=== PATIENT | female | born 1965 | race Caucasian/White ===

== ENCOUNTER 2017-09-10 10:20 | Emergency (ER) | payer MEDICAID ==
[~2017-09-10] VITALS: Ht 162.6 cm; Wt 120.0 kg
[~2017-09-10 10:20] MED LIST: ACET-2119 PO; ALBU18HF2 INH; ARIP5TAB4 PO; DIPH-423 PO; DOCU-28 PO; LAMO100T89 PO; LEVO25TA2 PO; OLAN15TA3 PO; OXYB5TAB29 PO; RISP0.5T74 PO; TOPI100T18 PO; TOPI50TA PO
[2017-09-10] MEDS ORDERED: LORazepam 2 mg/ml vial IM ONE (10:35)
[2017-09-10 10:50] LABS: BASOPHILS % (AUTO) 0.4 % (0-1); EOSINOPHILS # (AUTO) 0.1 X10'3 (0-0.9); EOSINOPHILS % (AUTO) 1.9 % (0-6); HEMOGLOBIN 14.1 g/dl (12.0-16.0); LYMPHOCYTES % (AUTO) 19.1 % (21-51); MEAN CORPUSCULAR HEMOGLOBIN 31.6 PG (27.0-31.0); MEAN CORPUSCULAR HGB CONC 34.3 % (33.0-36.5); MEAN CORPUSCULAR VOLUME 92.3 FL (78-98); MEAN PLATELET VOLUME 6.6 FL (7.4-10.4); MONOCYTES # (AUTO) 0.4 X10'3 (0-0.9); MONOCYTES % (AUTO) 7.2 % (2-12); NEUTROPHILS # (AUTO) 3.7 X10'3 (1.8-7.7); NEUTROPHILS % (AUTO) 71.4 % (42-75); PLATELET COUNT 262 X10'3 (140-440); RED BLOOD COUNT 4.45 X10'6 (4.20-5.60); RED CELL DISTRIBUTION WIDTH 13.7 % (11.5-14.5); WHITE BLOOD COUNT 5.2 X10'3 (4.5-11.0)
[2017-09-10 11:12] LABS: ALANINE AMINOTRANSFERASE 28 U/L (12-78); ALBUMIN 3.5 G/DL (3.4-5.0); ALBUMIN/GLOBULIN RATIO 0.9 (1.1-1.5); ALKALINE PHOSPHATASE 82 IU/L (46-116); ANION GAP 11 (8-16); ASPARTATE AMINO TRANSFERASE 16 U/L (10-37); BILIRUBIN,TOTAL 0.3 MG/DL (0.1-1.0); BLOOD UREA NITROGEN 19 MG/DL (7-18); BUN/CREATININE RATIO 19.8 (6.6-38.0); CALCIUM 9.2 MG/DL (8.5-10.1); CHLORIDE 110 MMOL/L (99-107); CREATININE 0.96 MG/DL (0.40-0.90); ETHANOL < 0.010 GM/DL (0.0-0.010); GLUCOSE 109 MG/DL (70-104); SODIUM 147 MMOL/L (135-145); TOTAL CARBON DIOXIDE 26.2 MMOL/L (24-32); TOTAL PROTEIN 7.4 G/DL (6.4-8.2); eGFR 61 ML/MIN
[2017-09-10] MEDS ORDERED: LORazepam 1 MG tablet PO ONE (12:45)
[2017-09-10 13:50] LABS: CLARITY,URINE Cloudy (Clear); COLOR,URINE Yellow (Yellow); GLUCOSE, URINE Negative (Neg); KETONES,URINE Negative (Neg); LEUKOCYTE ESTERASE ,URINE Moderate (Neg); NITRITES, URINE Negative (Neg); OCCULT BLOOD,URINE Moderate (Neg); PROTEIN,URINE Negative (Neg)
[2017-09-10 13:51] LABS: UA COLLECTION TYPE CLN CATCH MIDSTREAM
[2017-09-10 13:59] LABS: URINE AMPHETAMINE SCREEN NEGATIVE (Neg); URINE BARBITUATE SCREEN NEGATIVE (Neg); URINE BENZODIAZEPINES SCREEN NEGATIVE (Neg); URINE CANNABINOID SCREEN NEGATIVE (Neg); URINE COCAINE SCREEN NEGATIVE (Neg); URINE METHADONE SCREEN NEGATIVE (Neg); URINE OPIATE SCREEN NEGATIVE (Neg); URINE PHENCYCLIDINE SCREEN NEGATIVE (Neg)
[2017-09-10 14:43] LABS: AMORPHOUS PHOSPHATES 1+; BACTERIA,URINE 4+ /HPF (Neg); MUCUS STRANDS FEW /LPF (Neg); RBC,URINE 0-2 /HPF (0-2); SQUAMOUS EPITHELIAL CELL,UR MODERATE /LPF (FEW)
[2017-09-10 14:44] LABS: WBC CLUMPS,URINE FEW /HPF (NEGATIVE)
[2017-09-11 03:25] LABS: URINE HCG NEGATIVE (NEG)
[2017-09-11] MEDS ORDERED: diphenhydrAMINE 25mg capsule PO PRN (09:40)
[2017-09-11] MEDS ORDERED: acetaminophen 325mg tablet PO PRN (09:40)
[2017-09-11] MEDS ORDERED: albuterol 2.5 MG/3 ML nebule NEB PRN (09:50)
[2017-09-11] MEDS ORDERED: levoTHYROXINE 25mcg tablet PO ONE (10:10)
[2017-09-11] MEDS ORDERED: aripiprazole 5mg tablet PO ONE (10:10)
[2017-09-11] MEDS: LORazepam 1 MG tablet PO PRN ×2 (10:42→20:37)
[2017-09-11] MEDS: risperiDONE 0.5mg tablet PO SCH ×2 (12:53→21:00)
[2017-09-11] MEDS: OLANZapine 2.5MG tablet PO SCH ×2 (12:53→20:36)
[2017-09-11] MEDS: topiramate 100mg tablet PO SCH ×2 (12:53→20:37)
[2017-09-11] MEDS: olanzapine 10mg tablet PO SCH ×2 (12:54→20:36)
[2017-09-11] MEDS: oxybutynin 5mg tablet PO SCH ×2 (13:15→20:38)
[2017-09-11] MEDS: docusate sod 100mg capsule PO SCH (20:00)
[2017-09-11] MEDS ORDERED: lamoTRIgine 100mg tablet PO SCH (21:00)
[2017-09-12] MEDS ORDERED: levoTHYROXINE 25mcg tablet PO SCH (07:00)
[2017-09-12 07:30] VITALS: BP 136/85
[2017-09-12] MEDS: oxybutynin 5mg tablet PO SCH (07:30)
[2017-09-12] MEDS: topiramate 100mg tablet PO SCH (07:30)
[2017-09-12] MEDS: olanzapine 10mg tablet PO SCH (07:30)
[2017-09-12] MEDS: docusate sod 100mg capsule PO SCH ×2 (07:30→07:31)
[2017-09-12] MEDS: risperiDONE 0.5mg tablet PO SCH (07:30)
[2017-09-12] MEDS: OLANZapine 2.5MG tablet PO SCH (07:30)
[2017-09-12] MEDS ORDERED: aripiprazole 5mg tablet PO SCH (08:00)
== END 2017-09-12 10:01 ==
LOC: ER 10:20
DX: F31.9 Bipolar disorder, unspecified (principal); F20.9 Schizophrenia, unspecified; F29 Unspecified psychosis not due to a substance or known physiological condition; Z88.0 Allergy status to penicillin; Z88.2 Allergy status to sulfonamides; Z88.5 Allergy status to narcotic agent; Z88.6 Allergy status to analgesic agent; Z88.8 Allergy status to other drugs, medicaments and biological substances; Z79.899 Other long term (current) drug therapy
CPT/HCPCS: 36415; 80053; 80305; 80320; 81001; 81025; 85025; 99285; J3490; Q0163; 84443

== ENCOUNTER 2021-07-17 18:25 | Inpatient (IN) | payer MEDICAID ==
[~2021-07-17] VITALS: Ht 160 cm; Wt 99.5 kg
[~2021-07-17 18:25] MED LIST changes: +ARIP5TAB14 PO; -ARIP5TAB4 PO; +LAMO100T PO; -LAMO100T89 PO; +TOP100T PO; -TOPI100T18 PO; -TOPI50TA PO
[2021-07-17] MEDS ORDERED: NICO-668 MM (20:01)
[2021-07-17] MEDS ORDERED: olanzapine 10mg tablet PO ONE (20:05)
[2021-07-17] MEDS ORDERED: diphenhydrAMINE 25mg capsule PO ONE (20:05)
[2021-07-17] MEDS ORDERED: LORazepam 2 mg/ml vial IM ONE (20:05)
[2021-07-17] MEDS ORDERED: diphenhydrAMINE 50 mg/ml inj IM ONE (20:05)
[2021-07-17] MEDS ORDERED: LORazepam 1 MG tablet PO ONE (20:05)
[2021-07-17] MEDS ORDERED: OLANZapine **IM** 10 mg inj. IM ONE (20:05)
[2021-07-17 20:35] LABS: BASOPHILS % (AUTO) 0.5 % (0-1); EOSINOPHILS # (AUTO) 0.1 X10'3 (0-0.9); EOSINOPHILS % (AUTO) 1.1 % (0-6); HEMATOCRIT 42.6 % (35.0-45.0); HEMOGLOBIN 14.3 g/dl (12.0-16.0); LYMPHOCYTES # (AUTO) 1.7 X10'3 (1.1-4.8); LYMPHOCYTES % (AUTO) 20.6 % (21-51); MEAN CORPUSCULAR HEMOGLOBIN 31.7 PG (27.0-31.0); MEAN CORPUSCULAR HGB CONC 33.6 g/dL (33.0-36.5); MEAN CORPUSCULAR VOLUME 94.1 FL (78-98); MEAN PLATELET VOLUME 6.8 FL (7.4-10.4); MONOCYTES # (AUTO) 0.6 X10'3 (0-0.9); MONOCYTES % (AUTO) 6.9 % (2-12); NEUTROPHILS # (AUTO) 5.7 X10'3 (1.8-7.7); NEUTROPHILS % (AUTO) 70.9 % (42-75); PLATELET COUNT 244 X10'3 (140-440); RED BLOOD COUNT 4.52 X10'6 (4.20-5.60); WHITE BLOOD COUNT 8.1 X10'3 (4.5-11.0)
--- NOTE | 2021-07-17 20:45 | NUR ---
New admit, patient recived at 18:15 . Patient showed signs of hypo manic psychosis spending a long period of time in the bathroom playing with the toliet, patient had to be encouraged out. Patient was seen by PA and was given Ativan 2mg, Benadryl 50mg and Zyprexa 10mg for sedation. Patient is not oriented, patient belives she is a 11 yr old girl who had an and the year is 1998. Patient does not undertand that she is in a hospital or even which city she is in. Patient was given unit scrubs and assisted to bed.
[2021-07-17 20:52] LABS: ALANINE AMINOTRANSFERASE 30 U/L (12-78); ALBUMIN 4.1 G/DL (3.4-5.0); ALBUMIN/GLOBULIN RATIO 1.1 (1.1-1.5); ALKALINE PHOSPHATASE 92 IU/L (46-116); ANION GAP 9 (8-16); ASPARTATE AMINO TRANSFERASE 21 U/L (10-37); BILIRUBIN,TOTAL 0.6 MG/DL (0.1-1.0); BLOOD UREA NITROGEN 19 MG/DL (7-18); BUN/CREATININE RATIO 21.6 (6.6-38.0); CHLORIDE 104 MMOL/L (99-107); CREATININE 0.88 MG/DL (0.40-0.90); ETHANOL < 0.010 GM/DL (0.0-0.010); GLUCOSE 110 MG/DL (70-104); POTASSIUM 3.3 MMOL/L (3.5-5.1); SODIUM 143 MMOL/L (135-145); TOTAL CARBON DIOXIDE 30.2 MMOL/L (24-32); TOTAL PROTEIN 7.9 G/DL (6.4-8.2); eGFR 66 ML/MIN
[2021-07-17] MEDS ORDERED: potassium Cl 20 mEq SR tablet PO ONE (21:05)
[2021-07-17] MEDS ORDERED: traZODone 50mg tablet PO PRN (22:00)
[2021-07-17 22:28] LABS: URINE AMPHETAMINE SCREEN NEGATIVE (Neg); URINE BARBITUATE SCREEN NEGATIVE (Neg); URINE BENZODIAZEPINES SCREEN NEGATIVE (Neg); URINE CANNABINOID SCREEN NEGATIVE (Neg); URINE COCAINE SCREEN NEGATIVE (Neg); URINE METHADONE SCREEN NEGATIVE (Neg); URINE OPIATE SCREEN NEGATIVE (Neg); URINE PHENCYCLIDINE SCREEN NEGATIVE (Neg)
--- NOTE | 2021-07-17 22:35 | NUR ---
Patient continues with delusional statements of being a child and waiting for asif. Patient was assisted to restroom for clean catch and again had to be encouraged out of bathroom. Patient is still awake an hour after medications were given. Nurse got verbal order from PA to add trazodone 100mg prn repeat after 45min and Atrax 50mg prn. Patient was given trazodone and assisted back to bed. Patient was observed laughing to self and appeared occupied by internal stimuli. When nurse asked who she was talking to patient just laughed and said it was a secret. Patient later started repeatedly asking for a benie and stating her head had woodson bite. Patient was given multiple heated blankets and encouraged to lay back down.
[2021-07-17 23:31] LABS: CLARITY,URINE CLEAR (Clear); COLOR,URINE YELLOW (Yellow); GLUCOSE, URINE NEGATIVE (Neg); KETONES,URINE 40 mg/dl (Neg); LEUKOCYTE ESTERASE ,URINE NEGATIVE (Neg); NITRITES, URINE NEGATIVE (Neg); OCCULT BLOOD,URINE NEGATIVE (Neg); PH,URINE 6.5 (4.8-8.0); PROTEIN,URINE NEGATIVE (Neg); UROBILINOGEN,URINE 0.2 E.U/dL (0.2-1.0)
[2021-07-17 23:34] LABS: UA COLLECTION TYPE CLN CATCH MIDSTREAM
[2021-07-18] MEDS ORDERED: LORazepam 1 MG tablet PO ONE ×2 (00:25)
[2021-07-18] MEDS ORDERED: diphenhydrAMINE 25mg capsule PO ONE (00:25)
--- NOTE | 2021-07-18 00:36 | NUR ---
Patient got up again to go to the restroom and again had to be encouraged out. Patient was given repeat trazodone due to patient still awake and actively responding to internal stimuli. Patient repeatedly asking for the morning after pill stating she slept with asif and didnt want to have a baby.
--- NOTE | 2021-07-18 02:29 | NUR ---
Patient keep yelling the baby is coming out and had to be redirected. Patient is still not sleeping, Dr. moore ordered ativan 2mg and benadryl 50mg. Patient took all medications. Patient continues to responed to internal voices and is getting louder.
--- NOTE | 2021-07-18 02:46 | NUR ---
Patient is finally asleep!
--- NOTE | 2021-07-18 04:36 | NUR ---
Patient is sleeping, breaths even and unlabored
--- NOTE | 2021-07-18 06:30 | NUR ---
Received patient awake in her room sorting through the items in her hygiene container.
--- NOTE | 2021-07-18 06:40 | NUR ---
Patient awake and pacing unit, Patient continues to try and get into restroom and mess around in sink. Patient redirected to bedside.
[2021-07-18] MEDS: albuterol 2.5 MG/3 ML nebule NEB SCH ×3 (07:00→15:00)
[2021-07-18] MEDS: levoTHYROXINE 25mcg tablet PO SCH (07:09)
[2021-07-18] MEDS: risperiDONE 0.5mg tablet PO SCH ×3 (07:09→20:22)
[2021-07-18] MEDS: OLANZAPINE 5 MG TABLET PO SCH ×3 (07:09→20:22)
[2021-07-18] MEDS: aripiprazole 5mg tablet PO SCH (07:09)
[2021-07-18] MEDS: docusate sod 100mg capsule PO SCH ×2 (07:09→20:21)
[2021-07-18] MEDS: oxybutynin 5mg tablet PO SCH (07:09)
[2021-07-18] MEDS: topiramate 100mg tablet PO SCH ×3 (07:09→20:22)
--- NOTE | 2021-07-18 07:30 | NUR ---
Pt requests different items, first want something to write with, a note pad , then coloring book. Pt continues to present delusional. Pt believes she is here for an "." Pt is talking to someone who isn't there. Pt believes she is , asking commercial real estate underwriter during abdominal assessment "are they still there?" Pt is singing random songs. Pt denies all psychotic symptoms. Pt is conserved.
--- NOTE | 2021-07-18 07:33 | NUR ---
PACKET FAXED TO [facility]
--- NOTE | 2021-07-18 10:00 | NUR ---
Reported to health technical writer - pt was sitting in bed and said "I just had diarrhea!" Pt was given hygiene bucket and clean scrubs to clean herself up. Pt told health technical writer her last BM was three days ago. Will hold next dose of Colace. Pt is psychotic, but is calm and redirectable.
--- NOTE | 2021-07-18 10:47 | NUR ---
Pt sitting in her room writing and coloring, pt randomly says "who is going to win the one million dollars?" "It has to be legal, not everyone is going to get the $100,000,000." "It is to share." Pt is again having this conversation with no one in the room.
--- NOTE | 2021-07-18 11:56 | NUR ---
Pt up to nurse station asking when she gets to leave. Machine Puller explained to pt she was conserved and county was looking for placement.
[2021-07-18] MEDS: NICOTINE POLACRILEX 2 MG LOZENGE BC PRN ×2 (12:14→20:23)
--- NOTE | 2021-07-18 12:19 | NUR ---
Pt receives monthly RUIZ Aristada 882mg. Last given on 07/17/21
--- NOTE | 2021-07-18 12:47 | NUR ---
Pt was compliant with 1300 medication. Pt sitting on bed saying "mom and dad come on in." "I told you they weren't there." Pt continues to respond to internal stimuli. Will continue to monitor.
--- NOTE | 2021-07-18 13:05 | NUR ---
Pt refused her lunch stating "I am vegetarian!" "I'm not eating this!" "I am going to this to my family and my insurance!" Pt eventually ate her bread and became more appropriate.
--- NOTE | 2021-07-18 13:40 | NUR ---
Pt requires redirection as she went into the bathroom and continously flushed the toilet. When asked if she was okay, pt stated "I was just making a phone call."
[2021-07-18] MEDS: hydrOXYzine 25 MG tablet PO PRN (14:41)
--- NOTE | 2021-07-18 14:46 | NUR ---
Die Cutter came back from lunch and pt was restless stating "I want to call the development rep's office." "I am supposed to be out of here." "I am going to write to [facility]." Pt continues to talk about the million dollars internal communications writer is to receive and what she will spend it on. Pt is up looking towards the exit, when asked what she was doing pt stated "I am not going anywhere." PRN Atarax was administered.
[2021-07-18] MEDS ORDERED: PRAZ2CAP2 PO (16:22)
[2021-07-18] MEDS ORDERED: GABA-534 PO (16:22)
--- NOTE | 2021-07-18 19:17 | NUR ---
RECIEVED PT SITTING IN BED
[2021-07-18] MEDS ORDERED: traZODone 50mg tablet PO ONE (20:00)
[2021-07-18] MEDS: gabapentin 400mg capsule PO SCH (20:21)
[2021-07-18] MEDS: lamoTRIgine 100mg tablet PO SCH (20:22)
[2021-07-18] MEDS: prazosin 1mg capsule PO SCH (20:22)
--- NOTE | 2021-07-18 20:45 | NUR ---
PT REFUSED HER PROZOSIN TOOK ALL OTHER MEDS.
[2021-07-18] MEDS: acetaminophen 325mg tablet PO PRN (21:42)
--- NOTE | 2021-07-18 21:58 | NUR ---
Patient is sleeping, breaths even and unlabored
--- NOTE | 2021-07-18 23:22 | NUR ---
Patient is sleeping, breaths even and unlabored
--- NOTE | 2021-07-19 04:02 | NUR ---
PATIENT OBSERVED SLEEPING IN BED AT THIS TIME. NO COMPLAINTS OR S/S OF DISTRESS.
--- NOTE | 2021-07-19 05:13 | NUR ---
PATIENT OBSERVED SLEEPING IN BED AT THIS TIME. NO COMPLAINTS OR S/S OF DISTRESS.
--- NOTE | 2021-07-19 06:25 | NUR ---
Patient up to BR and talking loudly to herself. Continue to monitor.
[2021-07-19] MEDS: levoTHYROXINE 25mcg tablet PO SCH (07:42)
[2021-07-19] MEDS: docusate sod 100mg capsule PO SCH ×2 (07:42→20:14)
[2021-07-19] MEDS: oxybutynin 5mg tablet PO SCH (07:42)
[2021-07-19] MEDS: OLANZAPINE 5 MG TABLET PO SCH ×3 (07:42→20:15)
[2021-07-19] MEDS: aripiprazole 5mg tablet PO SCH (07:42)
[2021-07-19] MEDS: topiramate 100mg tablet PO SCH ×3 (07:42→20:15)
[2021-07-19] MEDS: risperiDONE 0.5mg tablet PO SCH ×3 (07:42→20:14)
[2021-07-19] MEDS: gabapentin 400mg capsule PO SCH ×2 (07:42→20:14)
--- NOTE | 2021-07-19 08:15 | NUR ---
Patient eating breakfast. Patient continues to talk. Continue to monitor.
--- NOTE | 2021-07-19 10:05 | NUR ---
Patient yelling out to patient 2 beds over. Patient is instigating patient. Patient asked to be quiet and patient will comply for a short period of time. Continue to monitor.
[2021-07-19] MEDS: acetaminophen 325mg tablet PO PRN ×2 (11:07→20:14)
--- NOTE | 2021-07-19 11:58 | NUR ---
Patient continues to engage peer and RN asked patient again to please allow her peer to rest. Patient has not kept quiet for about 15 minutes. Continue to monitor.
--- NOTE | 2021-07-19 13:03 | NUR ---
Patient upset that she received chicken for lunch. Patient states that she is a vegetarian. RN ordered patient a Vegetarian lunch and ordered a late tray. Patient advised. Continue to monitor.
--- NOTE | 2021-07-19 13:27 | NUR ---
RN received Conservator paperwork from [facility]. RN placed in patient's chart.
--- NOTE | 2021-07-19 14:15 | NUR ---
Patient whispering and asking for the "morning after pill" and antibiotics for her STDs. Patient has no indication for either. Patient went back to her bed. Continue to monitor.
--- NOTE | 2021-07-19 14:34 | NUR ---
Patient sitting on side of bed and appears to be responding to internal stimuli.
--- NOTE | 2021-07-19 16:10 | NUR ---
Patient given warm blankets. Patient sleeping on left side. No distress observed. Continue to monitor.
--- NOTE | 2021-07-19 18:35 | NUR ---
The patient is up and about the unit periodically. She is currently sitting on her bed trying to engage with staff at the nursing station. Mood is elevated and when asked how her mood was she stated "It's great. I'm having fun" She is hyperverbal. She is accepting redirection. Mild intrussiveness. When asked if she was hearing voices or seeing things that weren't there she replied, "I don't know" When asked why she was here she replied, "I started to come because I needed a change of medications and to have an "
[2021-07-19] MEDS: diphenhydrAMINE 25mg capsule PO PRN (20:14)
[2021-07-19] MEDS: prazosin 1mg capsule PO SCH (20:15)
[2021-07-19] MEDS: lamoTRIgine 100mg tablet PO SCH (20:15)
[2021-07-19] MEDS: hydrOXYzine 25 MG tablet PO PRN (20:15)
--- NOTE | 2021-07-19 20:21 | NUR ---
The patient is having conversations with people who are not there. She stated that she works for the [employer]. She is pleasant with staff.
--- NOTE | 2021-07-19 21:40 | NUR ---
The patient is responding to internal stimuli. She has disrobed and stated that she can't sleep in her clothes.
[2021-07-19] MEDS ORDERED: LORazepam 1 MG tablet PO ONE (21:45)
--- NOTE | 2021-07-19 21:55 | NUR ---
The patient has disrobed. She is irritable and responding to internal stimuli. Dr. Levy made aware and orders received for ativan which the patient took. She was given a snack and encouraged to go back to sleep. She is refusing to sleep with the hospital scrubs but did agree to put on a hospital gown for the night.
--- NOTE | 2021-07-19 23:27 | NUR ---
The patient appears to be sleeping
--- NOTE | 2021-07-20 01:27 | NUR ---
The patient appears to be sleeping
--- NOTE | 2021-07-20 03:05 | NUR ---
The patient appears to be sleeping
--- NOTE | 2021-07-20 05:44 | NUR ---
The patient appears to be sleeping
--- NOTE | 2021-07-20 06:30 | NUR ---
Pt is in bed sleeping.
--- NOTE | 2021-07-20 08:08 | NUR ---
Pt is awake and is up using the bathroom.
[2021-07-20] MEDS: topiramate 100mg tablet PO SCH ×3 (08:26→20:23)
[2021-07-20] MEDS: gabapentin 400mg capsule PO SCH ×2 (08:26→20:23)
[2021-07-20] MEDS: risperiDONE 0.5mg tablet PO SCH ×3 (08:26→20:22)
[2021-07-20] MEDS: levoTHYROXINE 25mcg tablet PO SCH (08:26)
[2021-07-20] MEDS: OLANZAPINE 5 MG TABLET PO SCH ×3 (08:27→20:23)
[2021-07-20] MEDS: aripiprazole 5mg tablet PO SCH (08:27)
[2021-07-20] MEDS: docusate sod 100mg capsule PO SCH ×2 (08:27→20:23)
[2021-07-20] MEDS: oxybutynin 5mg tablet PO SCH (08:30)
--- NOTE | 2021-07-20 08:30 | NUR ---
Pt is lablile. She states she feels sick and has the flu. Pt is tearful. Pt's lungs are clear, she is afebrile and her vital signs are stable. Pt believed it was August 09. Pt admits to feeling a little depressed but denies SI. Pt denies AH.
--- NOTE | 2021-07-20 09:23 | NUR ---
Pt is up asking for underwear and pads.
--- NOTE | 2021-07-20 11:24 | NUR ---
Pt is sitting on the side of her bed snacking.
--- NOTE | 2021-07-20 13:30 | NUR ---
Pt got up and walked to the bathroom.
--- NOTE | 2021-07-20 14:00 | NUR ---
Held 1300 Zyprexa, Topamax, and Risperdal as pt is fast asleep and snoring.
--- NOTE | 2021-07-20 14:06 | NUR ---
Pt has been accepted by [facility]. Daryn corley RN is here to get the patient.
--- NOTE | 2021-07-20 14:09 | NUR ---
Pt transferred upstairs to [facility] via w/c accompanied by Daryn TRAN and . All belongings sent with the patient.
[2021-07-20] MEDS ORDERED: mag hydrox/Alum hydrox/simeth 30ml oral suspension PO PRN (14:35)
[2021-07-20] MEDS ORDERED: acetaminophen 325mg tablet PO PRN (14:35)
[2021-07-20] MEDS ORDERED: loperamide 2mg capsule PO PRN (14:35)
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
[2021-07-20 14:43] VITALS: BP 132/91
[2021-07-20 19:00] VITALS: BP 135/81
[2021-07-20] MEDS: lamoTRIgine 100mg tablet PO SCH (20:22)
[2021-07-20] MEDS: prazosin 1mg capsule PO SCH (20:23)
[2021-07-20] MEDS: traZODone 50mg tablet PO PRN (21:19)
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
[2021-07-21] MEDS: levoTHYROXINE 25mcg tablet PO SCH (07:10)
[2021-07-21 07:36] VITALS: BP 149/100
[2021-07-21 08:00] VITALS: BP 120/70
[2021-07-21] MEDS: nicotine 21mg patch - 24 hr TD SCH (08:00)
[2021-07-21] MEDS: docusate sod 100mg capsule PO SCH (08:15)
[2021-07-21] MEDS: aripiprazole 5mg tablet PO SCH (08:15)
[2021-07-21] MEDS: risperiDONE 0.5mg tablet PO SCH ×3 (08:15→20:59)
[2021-07-21] MEDS: oxybutynin 5mg tablet PO SCH (08:15)
[2021-07-21] MEDS: OLANZAPINE 5 MG TABLET PO SCH ×3 (08:15→20:58)
[2021-07-21] MEDS: gabapentin 400mg capsule PO SCH ×2 (08:15→20:59)
[2021-07-21] MEDS: magnesium hydroxide 30ml (MOM) UD suspension PO PRN (08:16)
[2021-07-21] MEDS: topiramate 100mg tablet PO SCH ×3 (08:17→20:59)
[2021-07-21 08:35] LABS: CHOL/HDL RATIO 3.5 (0.00-4.99); CHOLESTEROL 159 MG/DL (0-200); HDL CHOLESTEROL 46 MG/DL (35-60); LDL CHOLESTEROL 89 MG/DL (50-100); TRIGLYCERIDES 165 MG/DL (20-135)
[2021-07-21 09:04] LABS: HEMOGLOBIN A1C 5.9 % (4.5-6.2)
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
[2021-07-21] MEDS: acetaminophen 325mg tablet PO PRN (12:54)
[2021-07-21] MEDS: sennosides 8.6mg tablet PO SCH ×2 (14:30→20:59)
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
--- NOTE | 2021-07-21 18:02 | NUR ---
Urine collected and sent to lab, results pending. Pt. reported she had a large BM.
[2021-07-21 18:14] LABS: URINE HCG NEGATIVE (NEG)
[2021-07-21 19:00] VITALS: BP 148/72
[2021-07-21] MEDS ORDERED: albuterol 2.5 MG/3 ML nebule NEB SCH (20:00)
[2021-07-21] MEDS: traZODone 50mg tablet PO PRN (20:59)
[2021-07-21] MEDS: lamoTRIgine 100mg tablet PO SCH (20:59)
[2021-07-21] MEDS: prazosin 1mg capsule PO SCH (20:59)
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
[2021-07-22 08:00] VITALS: BP 128/64
[2021-07-22] MEDS: nicotine 21mg patch - 24 hr TD SCH (08:00)
[2021-07-22] MEDS: gabapentin 400mg capsule PO SCH ×2 (08:27→20:18)
[2021-07-22] MEDS: oxybutynin 5mg tablet PO SCH (08:27)
[2021-07-22] MEDS: risperiDONE 0.5mg tablet PO SCH ×3 (08:27→20:17)
[2021-07-22] MEDS: aripiprazole 5mg tablet PO SCH (08:27)
[2021-07-22] MEDS: topiramate 100mg tablet PO SCH ×3 (08:28→20:18)
[2021-07-22] MEDS: levoTHYROXINE 25mcg tablet PO SCH (08:28)
[2021-07-22] MEDS: OLANZAPINE 5 MG TABLET PO SCH ×3 (08:28→20:18)
[2021-07-22] MEDS ORDERED: albuterol 2.5 MG/3 ML nebule NEB PRN (11:10)
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
[2021-07-22] MEDS: hydrOXYzine 25 MG tablet PO PRN (16:12)
[2021-07-22] MEDS: lamoTRIgine 100mg tablet PO SCH (20:17)
[2021-07-22] MEDS: prazosin 1mg capsule PO SCH (20:18)
[2021-07-22] MEDS: traZODone 50mg tablet PO PRN ×2 (20:18→22:09)
[2021-07-22] MEDS: sennosides 8.6mg tablet PO SCH (20:18)
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
[2021-07-23 07:12] VITALS: BP 127/69
[2021-07-23] MEDS: gabapentin 400mg capsule PO SCH ×3 (08:00→20:14)
[2021-07-23] MEDS: topiramate 100mg tablet PO SCH ×3 (08:00→20:14)
[2021-07-23] MEDS: risperiDONE 0.5mg tablet PO SCH ×3 (08:26→20:14)
[2021-07-23] MEDS: levoTHYROXINE 25mcg tablet PO SCH (08:26)
[2021-07-23] MEDS: oxybutynin 5mg tablet PO SCH (08:27)
[2021-07-23] MEDS: OLANZAPINE 5 MG TABLET PO SCH ×3 (08:27→20:13)
[2021-07-23] MEDS: aripiprazole 5mg tablet PO SCH (08:27)
--- NOTE | 2021-07-23 14:00 | NUR ---
Initial: Pt admitted w/ schizophrenia per EMR. Currently on Vegetarian diet w/ mostly 75-100% intake of meals, though may refuse one occasionally. Pt also noted to consume some snacks. LBM 07/21 receiving routine and PRN bowel care. No nutrition intervention implemented at this time, will continue to monitor. Recs: 1. Continue vegetarian diet as tolerated 2. Bowel care per rx 3. Weekly wts Addendum: 07/23/21 at [address] Amended: Links added.
--- NOTE | 2021-07-23 16:41 | NUR ---
Pt. is refusing to be weighed Addendum: 07/23/21 at 1641 by Elenita Rodriguez RN Amended: Links added.
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
[2021-07-23 20:00] VITALS: BP_SYST 108; BP_SYST 125; BP_DIAS 63; BP_DIAS 78
[2021-07-23] MEDS: traZODone 50mg tablet PO PRN (20:13)
[2021-07-23] MEDS: prazosin 1mg capsule PO SCH (20:13)
[2021-07-23] MEDS: lamoTRIgine 100mg tablet PO SCH (20:14)
[2021-07-23] MEDS: sennosides 8.6mg tablet PO SCH (20:18)
[2021-07-23 21:07] VITALS: BP 125/78
[2021-07-24] MEDS ORDERED: LORazepam 1 MG tablet PO ONE ×2 (02:25→23:05)
--- NOTE | 2021-07-24 03:48 | NUR ---
Nursing Progress Note: Legal hold: TCON Client on involuntary status for GD Report received from nurse Dario TRAN with use of SBAR Why are they here: Patients current status is gravely disabled. He cannot make a viable plan for food or senior living when discharged. Patient is diagnosed with schizophrenia. Has a history of non-compliance with treatment and auditory hallucinations. Assessment What has happened this shift: Pt. Sitting at bedside eating his dinner at start of shift. He answers questions but there is a long pause and he answers usually only yes or no questions. Pt. denies SI, HI, he did not answer when asked about voices. Pt has white coating on tongue denies sore throat. Pt up on unit waking back and forth in siu for awhile. Ointment applied to rt heel boot to elevate heel applied at bedtime. Pt had an episode of incontinence during night. Cooperative with linen and clothing change went right back to sleep. S/I, H/I: Denies. A/VH: Endorses AH, denies VH Sleep: Asleep at this time ADL's: Requires assistance, and has episodes of incontinence. Group attendance: NA Were meds taken: Yes Any med S/E: None noted or reported. Mental Status Exam Appearance: Older male, thin green hospital scrubs. Eye contact: Fair Behavior: Socially withdrawn Speech: Soft spoken and slow. Mood: Depressed Affect: Flat Thought process: Poverty of thought. Thought Content: Im very tired. Cognition: A/O X 3 Insight: Fair Judgment: Poor Addendum: 07/24/21 at 0419 by Bela Rosario RN Disregard wrong pt.
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
[2021-07-24] MEDS: risperiDONE 0.5mg tablet PO SCH ×3 (07:56→20:09)
[2021-07-24] MEDS: oxybutynin 5mg tablet PO SCH (07:56)
[2021-07-24] MEDS: topiramate 100mg tablet PO SCH ×3 (07:56→20:09)
[2021-07-24] MEDS: levoTHYROXINE 25mcg tablet PO SCH (07:56)
[2021-07-24] MEDS: aripiprazole 5mg tablet PO SCH (07:56)
[2021-07-24] MEDS: gabapentin 400mg capsule PO SCH ×2 (07:56→20:09)
[2021-07-24] MEDS: OLANZAPINE 5 MG TABLET PO SCH ×3 (07:56→20:09)
[2021-07-24 08:00] VITALS: BP 130/64
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
[2021-07-24 19:51] VITALS: BP 158/95
[2021-07-24] MEDS: prazosin 1mg capsule PO SCH (20:08)
[2021-07-24] MEDS: traZODone 50mg tablet PO PRN ×2 (20:09→23:17)
[2021-07-24] MEDS: lamoTRIgine 100mg tablet PO SCH (20:09)
[2021-07-24] MEDS: sennosides 8.6mg tablet PO SCH (20:17)
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
[2021-07-25] MEDS: acetaminophen 325mg tablet PO PRN (04:36)
[2021-07-25] MEDS: levoTHYROXINE 25mcg tablet PO SCH (06:40)
[2021-07-25 07:30] VITALS: BP 141/86
[2021-07-25] MEDS: oxybutynin 5mg tablet PO SCH (07:32)
[2021-07-25] MEDS: OLANZAPINE 5 MG TABLET PO SCH ×2 (07:32→14:01)
[2021-07-25] MEDS: risperiDONE 0.5mg tablet PO SCH ×3 (07:32→20:56)
[2021-07-25] MEDS: gabapentin 400mg capsule PO SCH ×2 (07:32→20:55)
[2021-07-25] MEDS: aripiprazole 5mg tablet PO SCH (07:32)
[2021-07-25] MEDS: topiramate 100mg tablet PO SCH ×3 (07:32→20:56)
--- NOTE | 2021-07-25 08:47 | NUR ---
Pt. c/o a sore throat this morning, she denies any other s/s (no cough, SOB, h/a, or fatigue), and V/S WNL. Endorsed to DELLA Figueredo and coronavirus nasopharyngeal swab ordered. Procedure was explained to pt., and she denied the need for any anxiolytic medication prior. However, pt. had difficulty sitting still during procedure and yelled out loudly. Swab was able to be completed and taken to the lab, results are pending at this time. Addendum: 07/25/21 at 1029 by [place]ia Daly RN COVID swab results are negative.
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
[2021-07-25 19:00] VITALS: BP 131/77
[2021-07-25] MEDS: CLOZAPINE 25 MG oral disintegrating tablet PO SCH (20:55)
[2021-07-25] MEDS: olanzapine 10mg tablet PO SCH (20:56)
[2021-07-25] MEDS: prazosin 1mg capsule PO SCH (20:56)
[2021-07-25] MEDS: lamoTRIgine 100mg tablet PO SCH (20:56)
[2021-07-25] MEDS: sennosides 8.6mg tablet PO SCH (20:56)
[2021-07-25] MEDS: temazepam 15mg capsule PO PRN (23:19)
[2021-07-26] MEDS: temazepam 15mg capsule PO PRN ×2 (00:09→20:29)
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
[2021-07-26 04:50] VITALS: BP 137/84
[2021-07-26 08:00] VITALS: BP 124/87
[2021-07-26] MEDS: risperiDONE 0.5mg tablet PO SCH ×3 (08:26→20:32)
[2021-07-26] MEDS: oxybutynin 5mg tablet PO SCH (08:26)
[2021-07-26] MEDS: olanzapine 10mg tablet PO SCH ×3 (08:26→20:32)
[2021-07-26] MEDS: gabapentin 400mg capsule PO SCH ×2 (08:26→20:33)
[2021-07-26] MEDS: topiramate 100mg tablet PO SCH ×3 (08:26→20:32)
[2021-07-26] MEDS: levoTHYROXINE 25mcg tablet PO SCH (08:26)
[2021-07-26] MEDS: CLOZAPINE 25 MG oral disintegrating tablet PO SCH (08:26)
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
[2021-07-26 20:02] VITALS: BP 137/82
[2021-07-26] MEDS: prazosin 1mg capsule PO SCH (20:29)
[2021-07-26] MEDS: traZODone 50mg tablet PO PRN (20:30)
[2021-07-26] MEDS: lamoTRIgine 100mg tablet PO SCH (20:31)
[2021-07-26] MEDS: clozapine 25mg tablet PO SCH (20:31)
[2021-07-26] MEDS: sennosides 8.6mg tablet PO SCH (20:33)
[2021-07-27] MEDS: traZODone 50mg tablet PO PRN ×2 (02:13→20:25)
[2021-07-27] MEDS: temazepam 15mg capsule PO PRN ×2 (02:13→20:25)
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
[2021-07-27 08:00] VITALS: BP 123/82
[2021-07-27] MEDS ORDERED: clozapine 25mg tablet PO SCH (08:00)
[2021-07-27] MEDS: gabapentin 400mg capsule PO SCH ×3 (08:00→20:24)
[2021-07-27] MEDS: levoTHYROXINE 25mcg tablet PO SCH (08:05)
[2021-07-27] MEDS: clozapine 25mg tablet PO SCH ×2 (08:05→20:27)
[2021-07-27] MEDS: topiramate 100mg tablet PO SCH ×3 (08:06→20:24)
[2021-07-27] MEDS: olanzapine 10mg tablet PO SCH ×3 (08:06→20:24)
[2021-07-27] MEDS: risperiDONE 0.5mg tablet PO SCH ×3 (08:06→20:24)
[2021-07-27] MEDS: oxybutynin 5mg tablet PO SCH (08:13)
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
[2021-07-27 19:00] VITALS: BP 121/88
[2021-07-27] MEDS: prazosin 1mg capsule PO SCH (20:25)
[2021-07-27] MEDS: sennosides 8.6mg tablet PO SCH (20:26)
[2021-07-27] MEDS: lamoTRIgine 100mg tablet PO SCH (20:26)
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
[2021-07-28] MEDS: risperiDONE 0.5mg tablet PO SCH ×3 (08:00→20:18)
[2021-07-28] MEDS: clozapine 25mg tablet PO SCH ×2 (08:00→10:41)
[2021-07-28] MEDS: topiramate 100mg tablet PO SCH ×3 (08:00→20:13)
[2021-07-28] MEDS: oxybutynin 5mg tablet PO SCH (08:00)
[2021-07-28] MEDS: levoTHYROXINE 25mcg tablet PO SCH (08:00)
[2021-07-28] MEDS: olanzapine 10mg tablet PO SCH ×3 (08:00→20:17)
[2021-07-28] MEDS: gabapentin 400mg capsule PO SCH ×2 (08:00→20:11)
[2021-07-28 08:36] VITALS: BP 136/87
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
[2021-07-28] MEDS: temazepam 15mg capsule PO PRN (20:11)
[2021-07-28] MEDS: sennosides 8.6mg tablet PO SCH (20:12)
[2021-07-28] MEDS: lamoTRIgine 100mg tablet PO SCH (20:12)
[2021-07-28] MEDS: prazosin 1mg capsule PO SCH (20:13)
[2021-07-28] MEDS: traZODone 50mg tablet PO PRN (20:16)
[2021-07-28] MEDS ORDERED: clozapine 100mg tablet PO SCH (21:00)
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
[2021-07-29 06:51] VITALS: BP 118/78
[2021-07-29 08:00] VITALS: BP 118/78
[2021-07-29] MEDS: levoTHYROXINE 25mcg tablet PO SCH (08:44)
[2021-07-29] MEDS: clozapine 25mg tablet PO SCH ×2 (08:45→20:27)
[2021-07-29] MEDS: olanzapine 10mg tablet PO SCH ×3 (08:45→20:26)
[2021-07-29] MEDS: topiramate 100mg tablet PO SCH ×3 (08:45→20:26)
[2021-07-29] MEDS: oxybutynin 5mg tablet PO SCH (08:45)
[2021-07-29] MEDS: gabapentin 400mg capsule PO SCH ×2 (08:45→20:26)
[2021-07-29] MEDS: risperiDONE 0.5mg tablet PO SCH ×3 (08:45→20:26)
[2021-07-29] MEDS ORDERED: clozapine 25mg tablet PO ONE (15:00)
[2021-07-29] MEDS: hydrOXYzine 25 MG tablet PO PRN (15:09)
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
[2021-07-29 19:00] VITALS: BP 118/70
[2021-07-29] MEDS: clozapine 100mg tablet PO SCH (20:26)
[2021-07-29] MEDS: prazosin 1mg capsule PO SCH (20:27)
[2021-07-29] MEDS: lamoTRIgine 100mg tablet PO SCH (20:27)
[2021-07-29] MEDS: sennosides 8.6mg tablet PO SCH (20:27)
[2021-07-29] MEDS: temazepam 15mg capsule PO PRN (20:29)
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
[2021-07-30 07:30] VITALS: BP 112/70
[2021-07-30] MEDS: levoTHYROXINE 25mcg tablet PO SCH (07:34)
[2021-07-30] MEDS: gabapentin 400mg capsule PO SCH ×3 (08:00→20:18)
[2021-07-30] MEDS: topiramate 100mg tablet PO SCH ×3 (08:48→20:19)
[2021-07-30] MEDS: oxybutynin 5mg tablet PO SCH (08:48)
[2021-07-30] MEDS: risperiDONE 0.5mg tablet PO SCH ×3 (08:48→20:19)
[2021-07-30] MEDS: olanzapine 10mg tablet PO SCH ×3 (08:48→20:18)
[2021-07-30] MEDS: clozapine 25mg tablet PO SCH ×2 (08:49→20:18)
[2021-07-30] MEDS: acetaminophen 325mg tablet PO PRN (14:00)
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
[2021-07-30 18:59] VITALS: BP 142/84
[2021-07-30] MEDS: lamoTRIgine 100mg tablet PO SCH (20:18)
[2021-07-30] MEDS: sennosides 8.6mg tablet PO SCH (20:18)
[2021-07-30] MEDS: prazosin 1mg capsule PO SCH (20:18)
[2021-07-30] MEDS: clozapine 100mg tablet PO SCH (20:19)
[2021-07-30] MEDS: magnesium hydroxide 30ml (MOM) UD suspension PO PRN (22:28)
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
[2021-07-31] MEDS: hydrOXYzine 25 MG tablet PO PRN (04:56)
[2021-07-31] MEDS: oxybutynin 5mg tablet PO SCH (07:01)
[2021-07-31] MEDS: levoTHYROXINE 25mcg tablet PO SCH (07:01)
[2021-07-31] MEDS: olanzapine 10mg tablet PO SCH ×3 (07:01→20:15)
[2021-07-31] MEDS: gabapentin 400mg capsule PO SCH ×2 (07:01→20:13)
[2021-07-31] MEDS: clozapine 25mg tablet PO SCH (07:01)
[2021-07-31] MEDS: risperiDONE 0.5mg tablet PO SCH ×3 (07:02→20:14)
[2021-07-31] MEDS: topiramate 100mg tablet PO SCH ×3 (07:02→20:15)
[2021-07-31 07:12] VITALS: BP 132/75
--- NOTE | 2021-07-31 08:50 | NUR ---
Reassessment: Pt PO intake currently ~56% avg of Vegetarian diet meals, partially meeting nutritional needs, though may refuse meals occasionally. Pt could benefit from smoothies BIDLD to help meet kcal/protein needs. Pt also noted to consume some snacks. [facility] 07/31 receiving routine and PRN bowel care. Will continue to monitor. Recs: 1. Continue vegetarian diet as tolerated; encourage PO and snacks 2. Begin smoothies BIDLD 3. Bowel care per rx 4. Weekly wts Addendum: 07/31/21 at [address] Amended: Links added. Addendum: 07/31/21 at [address] I have reviewed and agree w/ assessment done by [employer]
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
[2021-07-31 20:08] VITALS: BP 130/83
[2021-07-31] MEDS: clozapine 100mg tablet PO SCH (20:13)
[2021-07-31] MEDS: lamoTRIgine 100mg tablet PO SCH (20:14)
[2021-07-31] MEDS: prazosin 1mg capsule PO SCH (20:14)
[2021-07-31] MEDS: temazepam 15mg capsule PO PRN (20:15)
[2021-07-31] MEDS: sennosides 8.6mg tablet PO SCH (20:15)
[2021-07-31] MEDS: traZODone 50mg tablet PO PRN (20:15)
[2021-07-31] MEDS ORDERED: clozapine 25mg tablet PO SCH (21:00)
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
[2021-08-01] MEDS: oxybutynin 5mg tablet PO SCH (08:20)
[2021-08-01] MEDS: levoTHYROXINE 25mcg tablet PO SCH (08:20)
[2021-08-01] MEDS: clozapine 25mg tablet PO SCH (08:20)
[2021-08-01] MEDS: olanzapine 10mg tablet PO SCH ×3 (08:21→20:24)
[2021-08-01] MEDS: gabapentin 400mg capsule PO SCH ×2 (08:21→20:25)
[2021-08-01] MEDS: topiramate 100mg tablet PO SCH ×3 (08:21→20:24)
[2021-08-01] MEDS: risperiDONE 0.5mg tablet PO SCH ×3 (08:21→20:23)
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
[2021-08-01 20:00] VITALS: BP 113/58
[2021-08-01] MEDS: temazepam 15mg capsule PO PRN (20:23)
[2021-08-01] MEDS: traZODone 50mg tablet PO PRN (20:23)
[2021-08-01] MEDS: prazosin 1mg capsule PO SCH (20:24)
[2021-08-01] MEDS: lamoTRIgine 100mg tablet PO SCH (20:24)
[2021-08-01] MEDS: sennosides 8.6mg tablet PO SCH (20:24)
[2021-08-01] MEDS ORDERED: clozapine 100mg tablet PO SCH (21:00)
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
[2021-08-02 06:44] VITALS: BP 115/60
[2021-08-02 07:00] VITALS: BP 115/60
[2021-08-02] MEDS: levoTHYROXINE 25mcg tablet PO SCH (07:44)
[2021-08-02] MEDS: clozapine 25mg tablet PO SCH ×2 (07:45→20:30)
[2021-08-02] MEDS: risperiDONE 0.5mg tablet PO SCH ×3 (07:45→20:29)
[2021-08-02] MEDS: oxybutynin 5mg tablet PO SCH (07:45)
[2021-08-02] MEDS: gabapentin 400mg capsule PO SCH ×2 (07:45→20:29)
[2021-08-02] MEDS: topiramate 100mg tablet PO SCH ×3 (07:46→20:29)
[2021-08-02] MEDS: olanzapine 10mg tablet PO SCH ×2 (07:46→13:00)
[2021-08-02] MEDS: acetaminophen 325mg tablet PO PRN (13:01)
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
[2021-08-02 20:05] VITALS: BP 137/73
[2021-08-02] MEDS: prazosin 1mg capsule PO SCH (20:29)
[2021-08-02] MEDS: traZODone 50mg tablet PO SCH (20:30)
[2021-08-02] MEDS: lamoTRIgine 100mg tablet PO SCH (20:30)
[2021-08-02] MEDS: sennosides 8.6mg tablet PO SCH (20:30)
[2021-08-02] MEDS: clozapine 100mg tablet PO SCH (20:30)
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
[2021-08-03] MEDS: levoTHYROXINE 25mcg tablet PO SCH (07:39)
[2021-08-03] MEDS: clozapine 25mg tablet PO SCH ×2 (07:39→20:12)
[2021-08-03] MEDS: risperiDONE 0.5mg tablet PO SCH ×3 (07:40→20:13)
[2021-08-03] MEDS: gabapentin 400mg capsule PO SCH ×2 (07:40→20:12)
[2021-08-03] MEDS: topiramate 100mg tablet PO SCH ×3 (07:40→20:12)
[2021-08-03] MEDS: oxybutynin 5mg tablet PO SCH (07:40)
[2021-08-03 08:00] VITALS: BP 126/82
[2021-08-03] MEDS ORDERED: olanzapine 10mg tablet PO SCH (08:00)
[2021-08-03] MEDS ORDERED: benzocaine/menthol oral lozeng 1 EACH BOX MM PRN (13:45)
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
[2021-08-03 19:00] VITALS: BP 120/72
[2021-08-03] MEDS: prazosin 1mg capsule PO SCH (20:12)
[2021-08-03] MEDS: lamoTRIgine 100mg tablet PO SCH (20:12)
[2021-08-03] MEDS: clozapine 100mg tablet PO SCH (20:13)
[2021-08-03] MEDS: sennosides 8.6mg tablet PO SCH (20:13)
[2021-08-03] MEDS: traZODone 50mg tablet PO SCH ×2 (20:15→21:00)
[2021-08-03] MEDS: temazepam 15mg capsule PO PRN (20:18)
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
[2021-08-04] MEDS: gabapentin 400mg capsule PO SCH ×2 (07:12→20:30)
[2021-08-04] MEDS: risperiDONE 0.5mg tablet PO SCH ×3 (07:12→20:31)
[2021-08-04] MEDS: oxybutynin 5mg tablet PO SCH (07:12)
[2021-08-04] MEDS: levoTHYROXINE 25mcg tablet PO SCH (07:12)
[2021-08-04] MEDS: topiramate 100mg tablet PO SCH ×3 (07:12→20:31)
[2021-08-04] MEDS: clozapine 25mg tablet PO SCH (07:12)
[2021-08-04 08:19] VITALS: BP 114/70
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
--- NOTE | 2021-08-04 16:48 | NUR ---
Reassessment: Pt with fluctuating PO intake, documented with 50-75% PO intake since 08/01 and more recently down to 50% PO intake not fully meeting estimated nutrient needs. Diet has just been changed to regular from vegetarian. Hopeful that PO intake will improve with new diet order. LBM 07/31 though per physical assessment pt unable to state when LBM was. Pt receiving routine bowel care with PRN MoM available, last given 07/30 per EMR. Will continue to follow and monitor need for nutrition intervention pending trends in PO intake with new diet order. Recommendations: 1. Continue regular diet 2. Smoothies BIDLD 3. Routine bowel care 4. Weekly scaled wts Addendum: 08/04/21 at [address] Amended: Links added.
[2021-08-04] MEDS: temazepam 15mg capsule PO PRN (20:29)
[2021-08-04] MEDS: clozapine 100mg tablet PO SCH (20:30)
[2021-08-04] MEDS: sennosides 8.6mg tablet PO SCH (20:31)
[2021-08-04] MEDS: lamoTRIgine 100mg tablet PO SCH (20:31)
[2021-08-04] MEDS: prazosin 1mg capsule PO SCH (20:31)
[2021-08-04] MEDS ORDERED: clozapine 25mg tablet PO SCH (21:00)
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
[2021-08-05] MEDS: risperiDONE 0.5mg tablet PO SCH ×3 (07:33→20:19)
[2021-08-05] MEDS: clozapine 25mg tablet PO SCH (07:33)
[2021-08-05] MEDS: gabapentin 400mg capsule PO SCH (07:34)
[2021-08-05] MEDS: levoTHYROXINE 25mcg tablet PO SCH (07:34)
[2021-08-05] MEDS: oxybutynin 5mg tablet PO SCH (07:34)
[2021-08-05] MEDS: topiramate 100mg tablet PO SCH ×2 (07:37→13:14)
[2021-08-05 08:17] VITALS: BP 131/75
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
[2021-08-05 19:24] VITALS: BP 147/96
[2021-08-05] MEDS: sennosides 8.6mg tablet PO SCH (20:19)
[2021-08-05] MEDS: lamoTRIgine 100mg tablet PO SCH (20:19)
[2021-08-05] MEDS: prazosin 1mg capsule PO SCH (20:20)
[2021-08-05] MEDS: topiramate 25mg tablet PO SCH (20:20)
[2021-08-05] MEDS: nystatin 15 GM powder TP SCH (21:00)
[2021-08-05] MEDS: clozapine 100mg tablet PO SCH (21:00)
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
[2021-08-06 07:52] VITALS: BP 160/93
[2021-08-06] MEDS: nystatin 15 GM powder TP SCH ×3 (08:00→20:24)
[2021-08-06] MEDS: oxybutynin 5mg tablet PO SCH (08:32)
[2021-08-06] MEDS: risperiDONE 0.5mg tablet PO SCH ×3 (08:32→20:23)
[2021-08-06] MEDS: levoTHYROXINE 25mcg tablet PO SCH (08:32)
[2021-08-06] MEDS: topiramate 25mg tablet PO SCH ×3 (08:32→20:23)
[2021-08-06] MEDS: clozapine 25mg tablet PO SCH (08:32)
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
[2021-08-06 19:02] VITALS: BP 148/80
[2021-08-06] MEDS: clozapine 100mg tablet PO SCH (20:23)
[2021-08-06] MEDS: temazepam 15mg capsule PO PRN (20:23)
[2021-08-06] MEDS: prazosin 1mg capsule PO SCH (20:23)
[2021-08-06] MEDS: lamoTRIgine 100mg tablet PO SCH (20:23)
[2021-08-06] MEDS: sennosides 8.6mg tablet PO SCH (20:24)
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
[2021-08-07 07:11] LABS: BASOPHILS % (AUTO) 0.6 % (0-1); EOSINOPHILS # (AUTO) 0.1 X10'3 (0-0.9); EOSINOPHILS % (AUTO) 2.3 % (0-6); HEMATOCRIT 42.3 % (35.0-45.0); HEMOGLOBIN 14.1 g/dl (12.0-16.0); LYMPHOCYTES # (AUTO) 1.4 X10'3 (1.1-4.8); LYMPHOCYTES % (AUTO) 23.2 % (21-51); MEAN CORPUSCULAR HEMOGLOBIN 31.8 PG (27.0-31.0); MEAN CORPUSCULAR HGB CONC 33.4 g/dL (33.0-36.5); MEAN PLATELET VOLUME 7.2 FL (7.4-10.4); MONOCYTES # (AUTO) 0.5 X10'3 (0-0.9); MONOCYTES % (AUTO) 9.2 % (2-12); NEUTROPHILS # (AUTO) 3.8 X10'3 (1.8-7.7); NEUTROPHILS % (AUTO) 64.7 % (42-75); PLATELET COUNT 260 X10'3 (140-440); RED BLOOD COUNT 4.45 X10'6 (4.20-5.60); RED CELL DISTRIBUTION WIDTH 13.7 % (11.5-14.5); WHITE BLOOD COUNT 5.9 X10'3 (4.5-11.0)
[2021-08-07] MEDS: clozapine 25mg tablet PO SCH (07:14)
[2021-08-07] MEDS: oxybutynin 5mg tablet PO SCH (07:14)
[2021-08-07] MEDS: levoTHYROXINE 25mcg tablet PO SCH (07:14)
[2021-08-07] MEDS: topiramate 25mg tablet PO SCH ×3 (07:14→19:51)
[2021-08-07] MEDS: risperiDONE 0.5mg tablet PO SCH ×3 (07:14→19:53)
[2021-08-07 07:17] LABS: ALANINE AMINOTRANSFERASE 29 U/L (12-78); ALBUMIN 3.9 G/DL (3.4-5.0); ALBUMIN/GLOBULIN RATIO 1.1 (1.1-1.5); ALKALINE PHOSPHATASE 100 IU/L (46-116); ANION GAP 7 (8-16); ASPARTATE AMINO TRANSFERASE 17 U/L (10-37); BILIRUBIN,TOTAL 0.4 MG/DL (0.1-1.0); BLOOD UREA NITROGEN 16 MG/DL (7-18); BUN/CREATININE RATIO 15.5 (6.6-38.0); CALCIUM 9.2 MG/DL (8.5-10.1); CHLORIDE 106 MMOL/L (99-107); CREATININE 1.03 MG/DL (0.40-0.90); GLUCOSE 108 MG/DL (70-104); POTASSIUM 3.6 MMOL/L (3.5-5.1); SODIUM 140 MMOL/L (135-145); TOTAL CARBON DIOXIDE 26.6 MMOL/L (24-32); TOTAL PROTEIN 7.6 G/DL (6.4-8.2); eGFR 55 ML/MIN
[2021-08-07] MEDS: nystatin 15 GM powder TP SCH ×3 (07:23→21:00)
[2021-08-07 07:47] VITALS: BP 119/78
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
[2021-08-07] MEDS: sennosides 8.6mg tablet PO SCH (19:50)
[2021-08-07] MEDS: temazepam 15mg capsule PO PRN (19:50)
[2021-08-07] MEDS: lamoTRIgine 100mg tablet PO SCH (19:52)
[2021-08-07] MEDS: clozapine 100mg tablet PO SCH (19:52)
[2021-08-07] MEDS: prazosin 1mg capsule PO SCH (19:53)
[2021-08-07 20:17] VITALS: BP 128/79
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
[2021-08-08] MEDS: topiramate 25mg tablet PO SCH ×3 (07:39→20:31)
[2021-08-08] MEDS: oxybutynin 5mg tablet PO SCH (07:39)
[2021-08-08] MEDS: risperiDONE 0.5mg tablet PO SCH (07:39)
[2021-08-08] MEDS: clozapine 25mg tablet PO SCH (07:39)
[2021-08-08] MEDS: levoTHYROXINE 25mcg tablet PO SCH (07:39)
[2021-08-08] MEDS: nystatin 15 GM powder TP SCH ×3 (07:50→20:31)
--- NOTE | 2021-08-08 08:03 | NUR ---
Reassessment: Pt continues on Regular diet w/ some improvement in PO intake, now avg 80% x 9 meals meeting est nutrient needs at this time. LBM 07/31 though per physical assessment pt unable to state when LBM was. Pt receiving routine bowel care with PRN MoM available, last given 07/30 per EMR. Will continue to follow. Recommendations: 1. Continue regular diet 2. Smoothies BIDLD 3. Routine bowel care 4. Weekly scaled wts Addendum: 08/08/21 at [address] Amended: Links added.
[2021-08-08 08:23] VITALS: BP 133/91
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
[2021-08-08 20:00] VITALS: BP 146/85
[2021-08-08] MEDS: clozapine 100mg tablet PO SCH (20:30)
[2021-08-08] MEDS: lamoTRIgine 100mg tablet PO SCH (20:30)
[2021-08-08] MEDS: prazosin 1mg capsule PO SCH (20:30)
[2021-08-08] MEDS: sennosides 8.6mg tablet PO SCH (20:31)
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
[2021-08-09 07:29] VITALS: BP 134/82
[2021-08-09] MEDS: nystatin 15 GM powder TP SCH ×3 (08:00→20:37)
[2021-08-09] MEDS: levoTHYROXINE 25mcg tablet PO SCH (08:07)
--- NOTE | 2021-08-09 08:07 | NUR ---
Sent notes to [facility] office for review at their request. MARCELA Cannon
[2021-08-09] MEDS: clozapine 25mg tablet PO SCH (08:08)
[2021-08-09] MEDS: topiramate 25mg tablet PO SCH ×3 (08:08→20:06)
[2021-08-09] MEDS: oxybutynin 5mg tablet PO SCH (08:08)
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
[2021-08-09 19:28] VITALS: BP 152/84
[2021-08-09] MEDS: clozapine 100mg tablet PO SCH (20:07)
[2021-08-09] MEDS: prazosin 1mg capsule PO SCH (20:07)
[2021-08-09] MEDS: lamoTRIgine 100mg tablet PO SCH (20:07)
[2021-08-09] MEDS: temazepam 15mg capsule PO PRN (20:07)
[2021-08-09] MEDS: hydrOXYzine 25 MG tablet PO PRN (20:07)
[2021-08-09] MEDS: sennosides 8.6mg tablet PO SCH (20:07)
[2021-08-09] MEDS: diphenhydrAMINE 25mg capsule PO PRN (20:07)
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
[2021-08-10 07:00] VITALS: BP_SYST 150; BP_DIAS 88; BP_DIAS 9
[2021-08-10] MEDS: levoTHYROXINE 25mcg tablet PO SCH (07:45)
[2021-08-10] MEDS: nystatin 15 GM powder TP SCH ×4 (08:00→20:26)
[2021-08-10] MEDS: oxybutynin 5mg tablet PO SCH (09:04)
[2021-08-10] MEDS: clozapine 100mg tablet PO SCH ×2 (09:04→20:57)
[2021-08-10] MEDS: topiramate 25mg tablet PO SCH ×3 (09:04→20:26)
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
[2021-08-10 19:07] VITALS: BP 151/88
[2021-08-10] MEDS: lamoTRIgine 100mg tablet PO SCH (20:26)
[2021-08-10] MEDS: prazosin 1mg capsule PO SCH (20:26)
[2021-08-10] MEDS: sennosides 8.6mg tablet PO SCH (20:26)
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
[2021-08-11] MEDS: levoTHYROXINE 25mcg tablet PO SCH (07:24)
[2021-08-11 08:00] VITALS: BP 116/76
[2021-08-11] MEDS: nystatin 15 GM powder TP SCH ×4 (08:00→19:54)
[2021-08-11] MEDS: topiramate 25mg tablet PO SCH ×3 (08:40→19:49)
[2021-08-11] MEDS: clozapine 100mg tablet PO SCH ×2 (08:40→19:51)
[2021-08-11] MEDS: oxybutynin 5mg tablet PO SCH (08:40)
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
[2021-08-11 19:40] VITALS: BP 136/76
[2021-08-11] MEDS: prazosin 1mg capsule PO SCH (19:49)
[2021-08-11] MEDS: lamoTRIgine 100mg tablet PO SCH (19:49)
[2021-08-11] MEDS: sennosides 8.6mg tablet PO SCH (19:50)
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
[2021-08-12] MEDS: levoTHYROXINE 25mcg tablet PO SCH (07:07)
[2021-08-12 07:08] VITALS: BP 138/88
[2021-08-12] MEDS: topiramate 25mg tablet PO SCH ×3 (07:12→19:40)
[2021-08-12] MEDS: clozapine 100mg tablet PO SCH ×2 (07:12→19:41)
[2021-08-12] MEDS: oxybutynin 5mg tablet PO SCH (07:12)
[2021-08-12] MEDS: nystatin 15 GM powder TP SCH ×2 (08:00→13:00)
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
--- NOTE | 2021-08-12 17:44 | NUR ---
Nystatin Powder discontinued per DELLA Grier. Pt. finally allowed this procedure writer to complete a skin check, and no redness or rash noted under bilateral breasts or pannus, will continue to monitor.
[2021-08-12 19:09] VITALS: BP 145/82
[2021-08-12] MEDS: prazosin 1mg capsule PO SCH (19:41)
[2021-08-12] MEDS: lamoTRIgine 100mg tablet PO SCH (19:41)
[2021-08-12] MEDS: sennosides 8.6mg tablet PO SCH (20:28)
[2021-08-12] MEDS ORDERED: clozapine 25mg tablet PO SCH (21:00)
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
[2021-08-13] MEDS: topiramate 25mg tablet PO SCH ×2 (07:40→20:10)
[2021-08-13] MEDS: levoTHYROXINE 25mcg tablet PO SCH (07:40)
[2021-08-13] MEDS: oxybutynin 5mg tablet PO SCH (07:40)
[2021-08-13] MEDS: clozapine 100mg tablet PO SCH ×2 (07:42→20:11)
[2021-08-13 08:03] VITALS: BP 140/85
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
--- NOTE | 2021-08-13 15:02 | NUR ---
PT CONTINUES TO REFUSE ORDERED EKG'S. THIS NURSE ENCOURAGED HER AND OFFERED TO SIT WITH HER THROUGH IT. SHE CONTINUED TO DECLINE AT ONE TIME SHE SAID, "THEY HAVE DONE IT THREE TIMES AND THE LAST ONE HURT ME."
[2021-08-13 19:17] VITALS: BP 138/86
[2021-08-13 20:05] VITALS: BP 149/93
[2021-08-13] MEDS: clozapine 25mg tablet PO SCH (20:11)
[2021-08-13] MEDS: lamoTRIgine 100mg tablet PO SCH (20:12)
[2021-08-13] MEDS: sennosides 8.6mg tablet PO SCH (20:12)
[2021-08-13] MEDS: prazosin 1mg capsule PO SCH (20:12)
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
[2021-08-14 07:23] VITALS: BP 124/62
[2021-08-14] MEDS: oxybutynin 5mg tablet PO SCH (07:48)
[2021-08-14] MEDS: clozapine 100mg tablet PO SCH ×2 (07:48→20:03)
[2021-08-14] MEDS: topiramate 25mg tablet PO SCH ×2 (07:48→20:03)
[2021-08-14] MEDS: levoTHYROXINE 25mcg tablet PO SCH (07:48)
[2021-08-14 07:51] LABS: BASOPHILS % (AUTO) 0.4 % (0-1); EOSINOPHILS # (AUTO) 0.1 X10'3 (0-0.9); EOSINOPHILS % (AUTO) 2.1 % (0-6); HEMATOCRIT 41.2 % (35.0-45.0); HEMOGLOBIN 13.7 g/dl (12.0-16.0); LYMPHOCYTES # (AUTO) 1.4 X10'3 (1.1-4.8); LYMPHOCYTES % (AUTO) 27.8 % (21-51); MEAN CORPUSCULAR HEMOGLOBIN 31.1 PG (27.0-31.0); MEAN CORPUSCULAR HGB CONC 33.2 g/dL (33.0-36.5); MEAN CORPUSCULAR VOLUME 93.8 FL (78-98); MEAN PLATELET VOLUME 7.1 FL (7.4-10.4); MONOCYTES # (AUTO) 0.4 X10'3 (0-0.9); MONOCYTES % (AUTO) 7.5 % (2-12); NEUTROPHILS # (AUTO) 3.2 X10'3 (1.8-7.7); NEUTROPHILS % (AUTO) 62.2 % (42-75); PLATELET COUNT 221 X10'3 (140-440); RED CELL DISTRIBUTION WIDTH 13.1 % (11.5-14.5); WHITE BLOOD COUNT 5.2 X10'3 (4.5-11.0)
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
[2021-08-14 20:03] VITALS: BP 156/88
[2021-08-14] MEDS: sennosides 8.6mg tablet PO SCH (20:03)
[2021-08-14] MEDS: temazepam 15mg capsule PO PRN (20:03)
[2021-08-14] MEDS: clozapine 25mg tablet PO SCH (20:03)
[2021-08-14] MEDS: lamoTRIgine 100mg tablet PO SCH (20:03)
[2021-08-14] MEDS: prazosin 1mg capsule PO SCH (20:04)
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
[2021-08-15 07:00] VITALS: BP 123/71
--- NOTE | 2021-08-15 07:27 | NUR ---
Reassessment: Pt continues on Regular diet w/ some decline in PO intake, now avg 61% x 10 meals though consumes some snacks likely meeting est nutrient needs at this time. LBM 08/12 with PRN MoM available. No nutrition intervention implemented at this time. Will continue to follow. Recommendations: 1. Continue regular diet 2. Smoothies BIDLD 3. Routine bowel care 4. Weekly scaled wts Addendum: 08/15/21 at [address] Amended: Links added.
[2021-08-15] MEDS: topiramate 25mg tablet PO SCH ×2 (07:50→20:11)
[2021-08-15] MEDS: oxybutynin 5mg tablet PO SCH (07:50)
[2021-08-15] MEDS: levoTHYROXINE 25mcg tablet PO SCH (07:50)
[2021-08-15] MEDS: clozapine 100mg tablet PO SCH ×2 (07:50→20:11)
--- NOTE | 2021-08-15 17:13 | NUR ---
Group Art Tx, Continued: Patient was able to particpate fully in the group activity. She was able to complete her heart drawing using various colors which she appeared to enjoy. Her Heart & journal writing expressed various thoughts however most were disorganzed making the content difficult for this therapist to fully understand. *Please refer to [facility] for a complete overview of todays session. Isabella Gaytan MA, FUNERAL ASSISTANT #[id number] [facility] Art Therapist Addendum: 08/15/21 at 1714 by Isabella Gaytan SS Amended: Links added.
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
[2021-08-15] MEDS: clozapine 25mg tablet PO SCH (20:11)
[2021-08-15] MEDS: sennosides 8.6mg tablet PO SCH (20:11)
[2021-08-15] MEDS: temazepam 15mg capsule PO PRN (20:11)
[2021-08-15] MEDS: lamoTRIgine 100mg tablet PO SCH (20:12)
[2021-08-15] MEDS: prazosin 1mg capsule PO SCH (20:12)
[2021-08-15 20:17] VITALS: BP 135/84
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
[2021-08-16] MEDS: levoTHYROXINE 25mcg tablet PO SCH (07:00)
[2021-08-16 07:35] VITALS: BP 110/73
[2021-08-16] MEDS: topiramate 25mg tablet PO SCH ×2 (08:29→20:51)
[2021-08-16] MEDS: oxybutynin 5mg tablet PO SCH (08:29)
[2021-08-16] MEDS: clozapine 100mg tablet PO SCH ×2 (08:29→20:51)
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
--- NOTE | 2021-08-16 17:24 | NUR ---
Group Art Tx, Continued: Patient entered into the group room 45 minutes after the session had started. Patient remained for another 15 minutes, simply sitting, putting her head down on her table in the back of the room and/or drawing briefly. She did not initiate any conversations. *Please refer to Exit41 for a complete overview of todays session. Isabella Gaytan MA, CLOTHING AND TEXTILES TEACHER #[id number] [facility] Art Therapist Addendum: 08/16/21 at 1745 by Isabella Gaytan SS Amended: Links added.
[2021-08-16] MEDS: clozapine 25mg tablet PO SCH (20:51)
[2021-08-16] MEDS: lamoTRIgine 100mg tablet PO SCH (20:51)
[2021-08-16] MEDS: sennosides 8.6mg tablet PO SCH (20:51)
[2021-08-16] MEDS: prazosin 1mg capsule PO SCH (20:51)
[2021-08-16] MEDS: temazepam 15mg capsule PO PRN (20:52)
[2021-08-16 21:01] VITALS: BP 154/77
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
[2021-08-17 07:33] VITALS: BP 139/82
[2021-08-17] MEDS: clozapine 100mg tablet PO SCH ×2 (08:14→20:40)
[2021-08-17] MEDS: topiramate 25mg tablet PO SCH ×2 (08:14→20:39)
[2021-08-17] MEDS: levoTHYROXINE 25mcg tablet PO SCH (08:14)
[2021-08-17] MEDS: oxybutynin 5mg tablet PO SCH (08:14)
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
[2021-08-17 19:00] VITALS: BP 144/79
[2021-08-17] MEDS: prazosin 1mg capsule PO SCH (20:38)
[2021-08-17] MEDS: sennosides 8.6mg tablet PO SCH (20:39)
[2021-08-17] MEDS: lamoTRIgine 100mg tablet PO SCH (20:39)
[2021-08-17] MEDS: temazepam 15mg capsule PO PRN (20:40)
[2021-08-17] MEDS: clozapine 25mg tablet PO SCH (20:40)
--- NOTE | 2021-08-18 03:45 | NUR ---
RN PROGRESS NOTE: LEGAL HOLD: LPS conserved for DTO. REASON FOR ADMIT: Client became agitated at board and care and began throwing her clothes away. THIS SHIFT: When this RN entered clients room to assess and give PM meds client stated "Leave and come back later!" Client repeated this five times, becoming louder each time. This RN entered the clients room 45 min later, client was smiling and stated, "I like you!" Client took evening meds. Client is focused on future placement and named several facilities she liked. Client also talked about all of the hobbies she liked. Client is looking forward to discharge. Clients mood is labile. Affect is blunted. DISCHARGE: Waiting placement.
[2021-08-18 07:30] VITALS: BP 105/69
[2021-08-18] MEDS: topiramate 25mg tablet PO SCH ×2 (07:31→21:11)
[2021-08-18] MEDS: clozapine 100mg tablet PO SCH ×2 (07:31→21:09)
[2021-08-18] MEDS: oxybutynin 5mg tablet PO SCH (07:31)
[2021-08-18] MEDS: levoTHYROXINE 25mcg tablet PO SCH (07:31)
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
[2021-08-18 19:44] VITALS: BP 155/95
[2021-08-18] MEDS: sennosides 8.6mg tablet PO SCH ×2 (21:00→21:10)
[2021-08-18] MEDS: prazosin 1mg capsule PO SCH (21:10)
[2021-08-18] MEDS: clozapine 25mg tablet PO SCH (21:10)
[2021-08-18] MEDS: lamoTRIgine 100mg tablet PO SCH (21:14)
--- NOTE | 2021-08-19 05:10 | NUR ---
RN PROGRESS NOTE: LEGAL HOLD: LPS conserved for DTO. REASON FOR ADMIT: Client became agitated at board and care and began throwing her clothes away. THIS SHIFT: Patient was pleasantly confused and cooperative, took PM meds and allowed an assessment. Patient did mention that she knows that people are speaking badly of her and "hate her". That was short lived before she began to talked about all of the hobbies she liked, she showed me all of her writings and asked if I liked them. Patient showered, said that she felt better afterwards and now that she'd organized her room. Patient fell asleep in the 11pm hour and rested the entire night. Will continue to monitor. DISCHARGE: Waiting placement.
[2021-08-19 07:32] VITALS: BP 104/77
[2021-08-19] MEDS: levoTHYROXINE 25mcg tablet PO SCH (08:04)
[2021-08-19] MEDS: oxybutynin 5mg tablet PO SCH (08:04)
[2021-08-19] MEDS: clozapine 100mg tablet PO SCH ×2 (08:05→20:36)
[2021-08-19] MEDS: topiramate 25mg tablet PO SCH ×2 (08:05→20:37)
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
[2021-08-19 18:59] VITALS: BP 124/78
[2021-08-19] MEDS: sennosides 8.6mg tablet PO SCH (20:34)
[2021-08-19] MEDS: prazosin 1mg capsule PO SCH (20:35)
[2021-08-19] MEDS: lamoTRIgine 100mg tablet PO SCH (20:35)
[2021-08-19] MEDS: clozapine 25mg tablet PO SCH (20:40)
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
[2021-08-20 07:11] VITALS: BP 138/80
[2021-08-20] MEDS: levoTHYROXINE 25mcg tablet PO SCH (07:26)
[2021-08-20] MEDS: oxybutynin 5mg tablet PO SCH (07:26)
[2021-08-20] MEDS: clozapine 100mg tablet PO SCH ×2 (07:26→20:29)
[2021-08-20] MEDS: topiramate 25mg tablet PO SCH ×2 (07:27→20:23)
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
[2021-08-20 19:00] VITALS: BP 110/68
[2021-08-20 19:23] VITALS: BP 110/68
[2021-08-20 20:20] VITALS: BP 129/84
[2021-08-20] MEDS: clozapine 25mg tablet PO SCH (20:23)
[2021-08-20] MEDS: sennosides 8.6mg tablet PO SCH (20:23)
[2021-08-20] MEDS: lamoTRIgine 100mg tablet PO SCH (20:23)
[2021-08-20] MEDS: prazosin 1mg capsule PO SCH (20:24)
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
[2021-08-21] MEDS: oxybutynin 5mg tablet PO SCH (07:39)
[2021-08-21] MEDS: topiramate 25mg tablet PO SCH ×2 (07:39→20:00)
[2021-08-21] MEDS: levoTHYROXINE 25mcg tablet PO SCH (07:39)
[2021-08-21 08:00] VITALS: BP 118/73
[2021-08-21] MEDS: clozapine 100mg tablet PO SCH ×2 (08:54→20:00)
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
[2021-08-21] MEDS: clozapine 25mg tablet PO SCH (20:00)
[2021-08-21] MEDS: temazepam 15mg capsule PO PRN (20:01)
[2021-08-21] MEDS: lamoTRIgine 100mg tablet PO SCH (20:01)
[2021-08-21] MEDS: sennosides 8.6mg tablet PO SCH (20:01)
[2021-08-21] MEDS: prazosin 1mg capsule PO SCH (20:01)
[2021-08-21 20:14] VITALS: BP 123/77
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
--- NOTE | 2021-08-22 07:21 | NUR ---
PLACEMENT PACKET Sent placement packet to [facility] office. MARCELA Cannon
[2021-08-22] MEDS: topiramate 25mg tablet PO SCH ×2 (07:59→20:11)
[2021-08-22] MEDS: oxybutynin 5mg tablet PO SCH (07:59)
[2021-08-22] MEDS: clozapine 100mg tablet PO SCH ×2 (07:59→20:12)
[2021-08-22] MEDS: levoTHYROXINE 25mcg tablet PO SCH (07:59)
[2021-08-22 08:00] VITALS: BP 132/68
--- NOTE | 2021-08-22 10:24 | NUR ---
Reassessment: Pt continues on Regular diet w/ some decline in PO intake, now avg 51% x 10 meals though consumes some snacks and likely meeting estimated nutrient needs at this time. LBM 08/22 with SARY Townsend available. No nutrition intervention implemented at this time. Will continue to follow. Addendum: 08/22/21 at [address] Amended: Links added. Addendum: 08/22/21 at [address] I have reviewed assessment by internal revenue agent
--- NOTE | 2021-08-22 13:19 | NUR ---
1:1 This below named therapist, met briefly with his patient to provide an expressive art activity using two templates. The patient was asked to complete in preparation for a mural making activity tomorrow. Patient responded by coming to the group room to begin working on the project. Isabella Gaytan MA, [employer] #[id number] [facility] Art Therapist Addendum: 08/22/21 at 1322 by Isabella Gaytan SS Amended: Links added.
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
--- NOTE | 2021-08-22 18:59 | NUR ---
Pt with fever, and h/a, reported to Dr River Pérez Test now. Addendum: 08/22/21 at 1900 by Soledad Gibson RN wrong patient
--- NOTE | 2021-08-22 19:00 | NUR ---
DISREGARD BELOW NOTE.WRONG PT
[2021-08-22 19:02] VITALS: BP 148/85
[2021-08-22] MEDS: prazosin 1mg capsule PO SCH (20:11)
[2021-08-22] MEDS: lamoTRIgine 100mg tablet PO SCH (20:11)
[2021-08-22] MEDS: clozapine 25mg tablet PO SCH (20:12)
[2021-08-22] MEDS: temazepam 15mg capsule PO PRN (20:12)
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
[2021-08-23] MEDS: levoTHYROXINE 25mcg tablet PO SCH (07:21)
[2021-08-23] MEDS: clozapine 100mg tablet PO SCH ×2 (07:22→20:24)
[2021-08-23] MEDS: oxybutynin 5mg tablet PO SCH (07:22)
[2021-08-23] MEDS: topiramate 25mg tablet PO SCH ×2 (07:22→20:24)
[2021-08-23 07:30] VITALS: BP 138/94
[2021-08-23 07:51] LABS: BASOPHILS % (AUTO) 0.7 % (0-1); EOSINOPHILS # (AUTO) 0.2 X10'3 (0-0.9); EOSINOPHILS % (AUTO) 3.6 % (0-6); HEMATOCRIT 44.7 % (35.0-45.0); HEMOGLOBIN 14.8 g/dl (12.0-16.0); LYMPHOCYTES # (AUTO) 1.6 X10'3 (1.1-4.8); LYMPHOCYTES % (AUTO) 33.2 % (21-51); MEAN CORPUSCULAR HEMOGLOBIN 31.4 PG (27.0-31.0); MEAN CORPUSCULAR HGB CONC 33.2 g/dL (33.0-36.5); MEAN CORPUSCULAR VOLUME 94.8 FL (78-98); MEAN PLATELET VOLUME 7.1 FL (7.4-10.4); MONOCYTES # (AUTO) 0.4 X10'3 (0-0.9); MONOCYTES % (AUTO) 8.2 % (2-12); NEUTROPHILS # (AUTO) 2.6 X10'3 (1.8-7.7); NEUTROPHILS % (AUTO) 54.3 % (42-75); PLATELET COUNT 214 X10'3 (140-440); RED BLOOD COUNT 4.71 X10'6 (4.20-5.60); RED CELL DISTRIBUTION WIDTH 13.6 % (11.5-14.5); WHITE BLOOD COUNT 4.7 X10'3 (4.5-11.0)
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
[2021-08-23 20:00] VITALS: BP 126/72
[2021-08-23] MEDS: lamoTRIgine 100mg tablet PO SCH (20:23)
[2021-08-23] MEDS: prazosin 1mg capsule PO SCH (20:24)
[2021-08-23] MEDS: clozapine 25mg tablet PO SCH (20:24)
[2021-08-23] MEDS: temazepam 15mg capsule PO PRN (20:24)
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
[2021-08-24] MEDS: oxybutynin 5mg tablet PO SCH (07:53)
[2021-08-24] MEDS: levoTHYROXINE 25mcg tablet PO SCH (07:53)
[2021-08-24] MEDS: clozapine 100mg tablet PO SCH ×2 (07:54→20:08)
[2021-08-24] MEDS: topiramate 25mg tablet PO SCH ×2 (07:54→20:07)
[2021-08-24 08:00] VITALS: BP 132/78
--- NOTE | 2021-08-24 09:19 | NUR ---
PLACEMENT UPDATE Placement packet was sent to [facility] for review. MARCELA Cannon
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
[2021-08-24 19:00] VITALS: BP 132/77
[2021-08-24] MEDS: lamoTRIgine 100mg tablet PO SCH (20:07)
[2021-08-24] MEDS: prazosin 1mg capsule PO SCH (20:07)
[2021-08-24] MEDS: clozapine 25mg tablet PO SCH (20:08)
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
[2021-08-25 07:07] VITALS: BP 137/81
[2021-08-25] MEDS: clozapine 100mg tablet PO SCH ×2 (08:22→20:02)
[2021-08-25] MEDS: levoTHYROXINE 25mcg tablet PO SCH (08:22)
[2021-08-25] MEDS: topiramate 25mg tablet PO SCH ×2 (08:22→20:02)
[2021-08-25] MEDS: oxybutynin 5mg tablet PO SCH (08:22)
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
[2021-08-25] MEDS: lamoTRIgine 100mg tablet PO SCH (20:01)
[2021-08-25] MEDS: prazosin 1mg capsule PO SCH (20:01)
[2021-08-25] MEDS: clozapine 25mg tablet PO SCH (20:02)
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
[2021-08-26 07:41] VITALS: BP 131/81
[2021-08-26] MEDS: clozapine 100mg tablet PO SCH ×2 (08:21→20:45)
[2021-08-26] MEDS: levoTHYROXINE 25mcg tablet PO SCH (08:21)
[2021-08-26] MEDS: oxybutynin 5mg tablet PO SCH (08:21)
[2021-08-26] MEDS: topiramate 25mg tablet PO SCH ×2 (08:21→20:46)
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
[2021-08-26] MEDS: clozapine 25mg tablet PO SCH (20:45)
[2021-08-26] MEDS: prazosin 1mg capsule PO SCH (20:45)
[2021-08-26] MEDS: lamoTRIgine 100mg tablet PO SCH (20:46)
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
[2021-08-27] MEDS: clozapine 100mg tablet PO SCH ×2 (07:33→20:32)
[2021-08-27] MEDS: oxybutynin 5mg tablet PO SCH (07:33)
[2021-08-27] MEDS: levoTHYROXINE 25mcg tablet PO SCH (07:33)
[2021-08-27 08:48] VITALS: BP 118/66
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
[2021-08-27 19:00] VITALS: BP 134/109
[2021-08-27] MEDS: clozapine 25mg tablet PO SCH (20:32)
[2021-08-27] MEDS: topiramate 25mg tablet PO SCH (20:32)
[2021-08-27] MEDS: lamoTRIgine 100mg tablet PO SCH (20:32)
[2021-08-27] MEDS: prazosin 1mg capsule PO SCH (20:33)
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
[2021-08-28] MEDS: levoTHYROXINE 25mcg tablet PO SCH (07:58)
[2021-08-28] MEDS: clozapine 100mg tablet PO SCH ×2 (07:58→20:02)
[2021-08-28] MEDS: oxybutynin 5mg tablet PO SCH (07:58)
[2021-08-28 08:00] VITALS: BP 120/71
[2021-08-28 08:44] VITALS: BP 120/71
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
[2021-08-28 19:22] VITALS: BP 133/78
[2021-08-28] MEDS: clozapine 25mg tablet PO SCH (20:02)
[2021-08-28] MEDS: topiramate 25mg tablet PO SCH (20:03)
[2021-08-28] MEDS: lamoTRIgine 100mg tablet PO SCH (20:03)
[2021-08-28] MEDS: prazosin 1mg capsule PO SCH (20:03)
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
--- NOTE | 2021-08-29 07:32 | NUR ---
PLACEMENT UPDATE Isabel has been accepted at [facility] and were planning on admitting her this week. They are not on lockdown again. TAD office will be sending Isabel's packet elsewhere. MARCELA Cannon
[2021-08-29] MEDS: levoTHYROXINE 25mcg tablet PO SCH (07:33)
[2021-08-29] MEDS: clozapine 100mg tablet PO SCH ×2 (07:33→20:15)
[2021-08-29] MEDS: oxybutynin 5mg tablet PO SCH (07:33)
[2021-08-29 08:00] VITALS: BP 152/91
--- NOTE | 2021-08-29 09:27 | NUR ---
Reassessment: Pt continues on regular diet w/ some decline in PO intake, now avg 35% x 14 meals w/ the refusal of some meals. Pt reports desire to lose wt per nursing note. Pt consumes most snacks and smoothies BIDLD and is likely meeting estimated nutrient needs. LBM 08/22 with PRN MoM available. Will continue to monitor for further nutrition intervention. Recommendations: 1. Continue regular diet 2. Smoothies BIDLD 3. Routine bowel care 4. Weekly scaled wts Addendum: 08/29/21 at [address] Amended: Links added. Addendum: 08/29/21 at [address] I have reviewed assessment by tax services intern
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
[2021-08-29 19:19] VITALS: BP 119/80
[2021-08-29] MEDS: prazosin 1mg capsule PO SCH (20:15)
[2021-08-29] MEDS: lamoTRIgine 100mg tablet PO SCH (20:15)
[2021-08-29] MEDS: topiramate 25mg tablet PO SCH (20:15)
[2021-08-29] MEDS: clozapine 25mg tablet PO SCH (20:15)
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
[2021-08-30 07:07] VITALS: BP 121/74
[2021-08-30] MEDS: clozapine 100mg tablet PO SCH ×2 (08:11→20:06)
[2021-08-30] MEDS: levoTHYROXINE 25mcg tablet PO SCH (08:11)
[2021-08-30] MEDS: oxybutynin 5mg tablet PO SCH (08:11)
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
[2021-08-30 19:36] VITALS: BP 154/95
[2021-08-30] MEDS: clozapine 25mg tablet PO SCH (20:06)
[2021-08-30] MEDS: prazosin 1mg capsule PO SCH (20:07)
[2021-08-30] MEDS: topiramate 25mg tablet PO SCH (20:07)
[2021-08-30] MEDS: lamoTRIgine 100mg tablet PO SCH (20:07)
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
[2021-08-31 07:14] VITALS: BP 129/83
[2021-08-31] MEDS: clozapine 100mg tablet PO SCH ×2 (07:40→21:50)
[2021-08-31] MEDS: levoTHYROXINE 25mcg tablet PO SCH (07:40)
[2021-08-31] MEDS: oxybutynin 5mg tablet PO SCH (07:40)
--- NOTE | 2021-08-31 14:50 | NUR ---
PLACEMENT UPDATE Client has been accepted at [facility], pending bed availability. Clients packet is still in the queue at [facility]. MARCELA Cannon
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
--- NOTE | 2021-08-31 17:48 | NUR ---
Pt's Clozaril was increased to 75 mg HS. Her prazosin was decreased to 3 mg HS. She has orders for a CBC/diff tomorrow 09/01/21.
[2021-08-31 19:00] VITALS: BP 151/88
[2021-08-31] MEDS ORDERED: clozapine 25mg tablet PO SCH (21:00)
[2021-08-31] MEDS: lamoTRIgine 100mg tablet PO SCH (21:50)
[2021-08-31] MEDS: topiramate 25mg tablet PO SCH (21:50)
[2021-08-31] MEDS: prazosin 1mg capsule PO SCH (21:53)
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
[2021-09-01 07:45] LABS: BASOPHILS % (AUTO) 0.8 % (0-1); EOSINOPHILS # (AUTO) 0.2 X10'3 (0-0.9); EOSINOPHILS % (AUTO) 2.9 % (0-6); HEMATOCRIT 45.5 % (35.0-45.0); HEMOGLOBIN 15.1 g/dl (12.0-16.0); LYMPHOCYTES # (AUTO) 1.8 X10'3 (1.1-4.8); LYMPHOCYTES % (AUTO) 29.4 % (21-51); MEAN CORPUSCULAR HGB CONC 33.1 g/dL (33.0-36.5); MEAN CORPUSCULAR VOLUME 93.8 FL (78-98); MEAN PLATELET VOLUME 7.3 FL (7.4-10.4); MONOCYTES # (AUTO) 0.6 X10'3 (0-0.9); MONOCYTES % (AUTO) 10.6 % (2-12); NEUTROPHILS # (AUTO) 3.4 X10'3 (1.8-7.7); NEUTROPHILS % (AUTO) 56.3 % (42-75); PLATELET COUNT 215 X10'3 (140-440); RED BLOOD COUNT 4.85 X10'6 (4.20-5.60); RED CELL DISTRIBUTION WIDTH 13.4 % (11.5-14.5)
[2021-09-01] MEDS: hydrOXYzine 25 MG tablet PO PRN (07:46)
[2021-09-01] MEDS: clozapine 100mg tablet PO SCH ×2 (07:46→20:09)
[2021-09-01] MEDS: levoTHYROXINE 25mcg tablet PO SCH (07:46)
[2021-09-01] MEDS: oxybutynin 5mg tablet PO SCH (07:46)
[2021-09-01 08:34] VITALS: BP 142/78
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
--- NOTE | 2021-09-01 16:59 | NUR ---
Notified Dr Reyes of pt's decline in appetite and in personal care. Received orders to decrease Clozaril to 100 mg daily and 300 mg HS.
[2021-09-01 19:00] VITALS: BP 119/86
[2021-09-01] MEDS: lamoTRIgine 100mg tablet PO SCH (20:09)
[2021-09-01] MEDS: prazosin 1mg capsule PO SCH (20:09)
[2021-09-01] MEDS: topiramate 25mg tablet PO SCH (20:10)
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
[2021-09-02 07:52] VITALS: BP 127/82
[2021-09-02] MEDS: levoTHYROXINE 25mcg tablet PO SCH (08:07)
[2021-09-02] MEDS: oxybutynin 5mg tablet PO SCH (08:08)
[2021-09-02] MEDS: clozapine 100mg tablet PO SCH ×2 (08:08→20:18)
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
[2021-09-02 19:13] VITALS: BP 116/68
[2021-09-02] MEDS: prazosin 1mg capsule PO SCH (20:18)
[2021-09-02] MEDS: topiramate 25mg tablet PO SCH (20:18)
[2021-09-02] MEDS: lamoTRIgine 100mg tablet PO SCH (20:18)
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
[2021-09-03 07:49] VITALS: BP 129/68
[2021-09-03] MEDS: oxybutynin 5mg tablet PO SCH (08:26)
[2021-09-03] MEDS: levoTHYROXINE 25mcg tablet PO SCH (08:26)
[2021-09-03] MEDS: clozapine 100mg tablet PO SCH ×2 (08:26→20:09)
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
[2021-09-03 19:26] VITALS: BP 128/72
[2021-09-03] MEDS: clozapine 25mg tablet PO SCH (20:09)
[2021-09-03] MEDS: topiramate 25mg tablet PO SCH (20:10)
[2021-09-03] MEDS: lamoTRIgine 100mg tablet PO SCH (20:10)
[2021-09-03] MEDS: prazosin 1mg capsule PO SCH (20:10)
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
[2021-09-04] MEDS: levoTHYROXINE 25mcg tablet PO SCH (07:29)
[2021-09-04] MEDS: oxybutynin 5mg tablet PO SCH (07:29)
[2021-09-04] MEDS: clozapine 25mg tablet PO SCH ×2 (07:39→20:21)
[2021-09-04 08:00] VITALS: BP 135/78
[2021-09-04 11:06] LABS: ALANINE AMINOTRANSFERASE 21 U/L (12-78); ALBUMIN 3.5 G/DL (3.4-5.0); ALBUMIN/GLOBULIN RATIO 1.2 (1.1-1.5); ALKALINE PHOSPHATASE 80 IU/L (46-116); ANION GAP 11 (8-16); ASPARTATE AMINO TRANSFERASE 18 U/L (10-37); BILIRUBIN,TOTAL 0.5 MG/DL (0.1-1.0); BLOOD UREA NITROGEN 15 MG/DL (7-18); BUN/CREATININE RATIO 13.5 (6.6-38.0); CALCIUM 8.7 MG/DL (8.5-10.1); CHLORIDE 106 MMOL/L (99-107); CREATININE 1.11 MG/DL (0.40-0.90); GLUCOSE 101 MG/DL (70-104); POTASSIUM 3.3 MMOL/L (3.5-5.1); SODIUM 145 MMOL/L (135-145); TOTAL CARBON DIOXIDE 28.1 MMOL/L (24-32); TOTAL PROTEIN 6.4 G/DL (6.4-8.2); eGFR 51 ML/MIN
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
[2021-09-04] MEDS ORDERED: potassium Cl 20 mEq SR tablet PO PRN ×2 (19:15)
[2021-09-04 19:31] VITALS: BP 128/73
[2021-09-04] MEDS: clozapine 100mg tablet PO SCH (20:21)
[2021-09-04] MEDS: topiramate 25mg tablet PO SCH (20:21)
[2021-09-04] MEDS: lamoTRIgine 100mg tablet PO SCH (20:21)
[2021-09-04] MEDS: prazosin 1mg capsule PO SCH (20:21)
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
[2021-09-05] MEDS: oxybutynin 5mg tablet PO SCH (07:50)
[2021-09-05] MEDS: clozapine 25mg tablet PO SCH ×2 (07:50→20:21)
[2021-09-05] MEDS: levoTHYROXINE 25mcg tablet PO SCH (07:50)
[2021-09-05 08:00] VITALS: BP 126/82
--- NOTE | 2021-09-05 13:33 | NUR ---
Reassessment: Pt continues on regular diet w/ similar PO intake, avg 39% x 12 meals w/ the refusal of some meals. Pt consumes some snacks and smoothies BIDLD and is likely meeting estimated nutrient needs. LBM 09/04 with PRN MoM available. Will continue to monitor for further nutrition intervention. Recommendations: 1. Continue regular diet 2. Smoothies BIDLD 3. Routine bowel care 4. Weekly scaled wts Addendum: 09/05/21 at [address] Amended: Links added.
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
[2021-09-05 19:54] VITALS: BP 141/84
[2021-09-05] MEDS: topiramate 25mg tablet PO SCH (20:20)
[2021-09-05] MEDS: lamoTRIgine 100mg tablet PO SCH (20:20)
[2021-09-05] MEDS: clozapine 100mg tablet PO SCH (20:20)
[2021-09-05] MEDS: prazosin 1mg capsule PO SCH (20:21)
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
[2021-09-06] MEDS: oxybutynin 5mg tablet PO SCH (07:21)
[2021-09-06] MEDS: levoTHYROXINE 25mcg tablet PO SCH (07:21)
[2021-09-06] MEDS: clozapine 25mg tablet PO SCH ×2 (07:21→20:02)
[2021-09-06 08:00] VITALS: BP 131/77
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
[2021-09-06 20:00] VITALS: BP 140/60
[2021-09-06] MEDS: clozapine 100mg tablet PO SCH (20:02)
[2021-09-06] MEDS: topiramate 25mg tablet PO SCH (20:02)
[2021-09-06] MEDS: lamoTRIgine 100mg tablet PO SCH (20:02)
[2021-09-06] MEDS: prazosin 1mg capsule PO SCH (20:02)
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
[2021-09-07] MEDS: clozapine 25mg tablet PO SCH ×2 (07:40→20:01)
[2021-09-07] MEDS: levoTHYROXINE 25mcg tablet PO SCH (07:40)
[2021-09-07] MEDS: oxybutynin 5mg tablet PO SCH (07:40)
[2021-09-07 07:42] VITALS: BP 136/80
--- NOTE | 2021-09-07 10:51 | NUR ---
PLACEMENT UPDATE Client has been accepted at [facility], pending bed availability. On 09/05/21, [facility] reported "I don't have any open beds at the moment, but we have some DC's in the works so it shouldn't be too much longer." Clients packet is still in the queue at [facility]. MARCELA Cannon
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
[2021-09-07] MEDS: prazosin 1mg capsule PO SCH (20:01)
[2021-09-07] MEDS: topiramate 25mg tablet PO SCH (20:01)
[2021-09-07] MEDS: lamoTRIgine 100mg tablet PO SCH (20:02)
[2021-09-07] MEDS: clozapine 100mg tablet PO SCH (20:02)
[2021-09-07 20:04] VITALS: BP 149/80
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
[2021-09-08 07:09] VITALS: BP 131/81
[2021-09-08 07:45] LABS: BASOPHILS % (AUTO) 0.7 % (0-1); EOSINOPHILS # (AUTO) 0.2 X10'3 (0-0.9); EOSINOPHILS % (AUTO) 3.3 % (0-6); HEMATOCRIT 44.2 % (35.0-45.0); HEMOGLOBIN 14.9 g/dl (12.0-16.0); LYMPHOCYTES # (AUTO) 2.3 X10'3 (1.1-4.8); LYMPHOCYTES % (AUTO) 39.5 % (21-51); MEAN CORPUSCULAR HEMOGLOBIN 31.2 PG (27.0-31.0); MEAN CORPUSCULAR HGB CONC 33.6 g/dL (33.0-36.5); MEAN PLATELET VOLUME 7.6 FL (7.4-10.4); MONOCYTES # (AUTO) 0.6 X10'3 (0-0.9); MONOCYTES % (AUTO) 9.4 % (2-12); NEUTROPHILS # (AUTO) 2.8 X10'3 (1.8-7.7); NEUTROPHILS % (AUTO) 47.1 % (42-75); PLATELET COUNT 208 X10'3 (140-440); RED BLOOD COUNT 4.76 X10'6 (4.20-5.60); RED CELL DISTRIBUTION WIDTH 13.5 % (11.5-14.5); WHITE BLOOD COUNT 5.9 X10'3 (4.5-11.0)
[2021-09-08] MEDS: oxybutynin 5mg tablet PO SCH (08:19)
[2021-09-08] MEDS: levoTHYROXINE 25mcg tablet PO SCH (08:19)
[2021-09-08] MEDS: clozapine 25mg tablet PO SCH ×2 (08:21→20:23)
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
[2021-09-08 19:00] VITALS: BP 140/84
[2021-09-08] MEDS: prazosin 1mg capsule PO SCH (20:23)
[2021-09-08] MEDS: lamoTRIgine 100mg tablet PO SCH (20:23)
[2021-09-08] MEDS: clozapine 100mg tablet PO SCH (20:23)
[2021-09-08] MEDS: topiramate 25mg tablet PO SCH (20:24)
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
[2021-09-09 07:40] VITALS: BP 130/87
[2021-09-09] MEDS: oxybutynin 5mg tablet PO SCH (08:38)
[2021-09-09] MEDS: levoTHYROXINE 25mcg tablet PO SCH (08:38)
[2021-09-09] MEDS: clozapine 25mg tablet PO SCH ×2 (08:38→20:36)
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
[2021-09-09 20:04] VITALS: BP 143/82
[2021-09-09] MEDS: prazosin 1mg capsule PO SCH (20:36)
[2021-09-09] MEDS: lamoTRIgine 100mg tablet PO SCH (20:36)
[2021-09-09] MEDS: clozapine 100mg tablet PO SCH (20:37)
[2021-09-09] MEDS: topiramate 25mg tablet PO SCH (20:38)
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
--- NOTE | 2021-09-10 07:28 | NUR ---
Reassessment: Pt continues on regular diet w/ similar PO intake, avg 32% x 12 meals w/ the refusal of some meals. Pt consumes some snacks and smoothies BIDLD and is likely meeting estimated nutrient needs. LBM 09/08 with PRN MoM available. Will continue to monitor for further nutrition intervention. Recommendations: 1. Continue regular diet 2. Smoothies BIDLD 3. Routine bowel care 4. Weekly scaled wts Addendum: 09/10/21 at [address] Amended: Links added.
[2021-09-10] MEDS: clozapine 25mg tablet PO SCH ×2 (07:42→20:08)
[2021-09-10] MEDS: levoTHYROXINE 25mcg tablet PO SCH (07:42)
[2021-09-10] MEDS: oxybutynin 5mg tablet PO SCH (07:43)
[2021-09-10 08:25] VITALS: BP 104/80
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
[2021-09-10] MEDS: clozapine 100mg tablet PO SCH (20:08)
[2021-09-10] MEDS: prazosin 1mg capsule PO SCH (20:08)
[2021-09-10] MEDS: lamoTRIgine 100mg tablet PO SCH (20:08)
[2021-09-10] MEDS: topiramate 25mg tablet PO SCH (20:08)
[2021-09-10] MEDS: temazepam 15mg capsule PO PRN (20:08)
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
[2021-09-11] MEDS: clozapine 25mg tablet PO SCH ×3 (07:26→20:13)
[2021-09-11] MEDS: levoTHYROXINE 25mcg tablet PO SCH (07:26)
[2021-09-11] MEDS: oxybutynin 5mg tablet PO SCH (07:27)
[2021-09-11 07:41] LABS: BASOPHILS % (AUTO) 0.6 % (0-1); EOSINOPHILS # (AUTO) 0.2 X10'3 (0-0.9); EOSINOPHILS % (AUTO) 2.6 % (0-6); HEMATOCRIT 42.2 % (35.0-45.0); HEMOGLOBIN 14.3 g/dl (12.0-16.0); LYMPHOCYTES # (AUTO) 2.3 X10'3 (1.1-4.8); LYMPHOCYTES % (AUTO) 35.7 % (21-51); MEAN CORPUSCULAR HEMOGLOBIN 31.1 PG (27.0-31.0); MEAN CORPUSCULAR HGB CONC 33.9 g/dL (33.0-36.5); MEAN CORPUSCULAR VOLUME 91.7 FL (78-98); MEAN PLATELET VOLUME 7.5 FL (7.4-10.4); MONOCYTES # (AUTO) 0.6 X10'3 (0-0.9); MONOCYTES % (AUTO) 10.2 % (2-12); NEUTROPHILS # (AUTO) 3.3 X10'3 (1.8-7.7); NEUTROPHILS % (AUTO) 50.9 % (42-75); PLATELET COUNT 208 X10'3 (140-440); RED CELL DISTRIBUTION WIDTH 13.4 % (11.5-14.5); WHITE BLOOD COUNT 6.4 X10'3 (4.5-11.0)
[2021-09-11 08:30] VITALS: BP 101/73
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
[2021-09-11 19:01] VITALS: BP 142/81
[2021-09-11] MEDS: prazosin 1mg capsule PO SCH (20:12)
[2021-09-11] MEDS: clozapine 100mg tablet PO SCH (20:12)
[2021-09-11] MEDS: lamoTRIgine 100mg tablet PO SCH (20:12)
[2021-09-11] MEDS: topiramate 25mg tablet PO SCH (20:13)
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
[2021-09-12] MEDS: clozapine 25mg tablet PO SCH ×3 (07:18→20:01)
[2021-09-12] MEDS: levoTHYROXINE 25mcg tablet PO SCH (07:18)
[2021-09-12] MEDS: oxybutynin 5mg tablet PO SCH (07:19)
[2021-09-12 07:44] VITALS: BP 165/79
[2021-09-12] MEDS: hydrOXYzine 25 MG tablet PO PRN (14:45)
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
[2021-09-12 19:02] VITALS: BP 134/75
[2021-09-12] MEDS: lamoTRIgine 100mg tablet PO SCH (20:01)
[2021-09-12] MEDS: clozapine 100mg tablet PO SCH (20:01)
[2021-09-12] MEDS: topiramate 25mg tablet PO SCH (20:01)
[2021-09-12] MEDS: prazosin 1mg capsule PO SCH (20:01)
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
[2021-09-13] MEDS: hydrOXYzine 25 MG tablet PO PRN ×2 (04:34→20:05)
[2021-09-13] MEDS: oxybutynin 5mg tablet PO SCH (07:31)
[2021-09-13] MEDS: levoTHYROXINE 25mcg tablet PO SCH (07:31)
[2021-09-13] MEDS: clozapine 25mg tablet PO SCH ×4 (07:32→20:03)
[2021-09-13 08:15] VITALS: BP 111/64
--- NOTE | 2021-09-13 08:38 | NUR ---
Pt. attended group today. Todays group was about the difference between Growth Mindset vs. Fixed Mindset. We learned about the differences and then discussed what aspect of developing a growth mindset they wanted to work on. Pt. sat in the group room at the back of the room. When asked if she wanted to participate in the group she declined. During the group she was quiet except when another peer was crying during the group, Pt. became distraught and started wailing and crying loudly. This Melter Helper asked her if she needed anything to feel better (gave her tissues) and Pt. quieted back down for the rest of the group. She did not engage in the group at all. Henny Nunez LCSW
--- NOTE | 2021-09-13 14:48 | NUR ---
PLACEMENT UPDATE Isabel has been accepted at [facility]. They have a bed for her and are no longer on lockdown. We are waiting for a transport date from [facility]. Requested 7 day supply of meds gets ordered and delivered by MARCELA Charles
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
[2021-09-13 19:34] VITALS: BP 136/85
[2021-09-13] MEDS: clozapine 100mg tablet PO SCH (20:03)
[2021-09-13] MEDS: lamoTRIgine 100mg tablet PO SCH (20:03)
[2021-09-13] MEDS: diphenhydrAMINE 25mg capsule PO PRN (20:05)
[2021-09-13] MEDS ORDERED: prazosin 1mg capsule PO SCH (21:00)
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
[2021-09-14] MEDS: levoTHYROXINE 25mcg tablet PO SCH (07:38)
[2021-09-14] MEDS: oxybutynin 5mg tablet PO SCH (07:38)
[2021-09-14] MEDS: clozapine 25mg tablet PO SCH ×3 (07:38→20:06)
[2021-09-14 08:00] VITALS: BP 132/87
[2021-09-14] MEDS: CLOZAPINE 25 MG oral disintegrating tablet PO PRN (10:57)
[2021-09-14] MEDS: hydrOXYzine 25 MG tablet PO PRN ×2 (11:20→20:06)
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
[2021-09-14 19:39] VITALS: BP 118/77
[2021-09-14] MEDS: clozapine 100mg tablet PO SCH (20:05)
[2021-09-14] MEDS: lamoTRIgine 100mg tablet PO SCH (20:06)
[2021-09-14] MEDS ORDERED: prazosin 1mg capsule PO SCH (21:00)
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
[2021-09-15] MEDS ORDERED: OLANZapine **IM** 10 mg inj. IM ONE ×2 (03:09→03:10)
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
[2021-09-15] MEDS: CLOZAPINE 25 MG oral disintegrating tablet PO PRN ×2 (03:32→16:11)
[2021-09-15] MEDS: levoTHYROXINE 25mcg tablet PO SCH (07:00)
[2021-09-15 07:14] VITALS: BP 123/79
[2021-09-15 07:38] LABS: BASOPHILS % (AUTO) 0.6 % (0-1); EOSINOPHILS # (AUTO) 0.1 X10'3 (0-0.9); EOSINOPHILS % (AUTO) 1.1 % (0-6); HEMATOCRIT 43.4 % (35.0-45.0); HEMOGLOBIN 14.5 g/dl (12.0-16.0); LYMPHOCYTES # (AUTO) 1.3 X10'3 (1.1-4.8); LYMPHOCYTES % (AUTO) 18.4 % (21-51); MEAN CORPUSCULAR HEMOGLOBIN 31.1 PG (27.0-31.0); MEAN CORPUSCULAR HGB CONC 33.4 g/dL (33.0-36.5); MEAN PLATELET VOLUME 7.6 FL (7.4-10.4); MONOCYTES # (AUTO) 0.8 X10'3 (0-0.9); MONOCYTES % (AUTO) 11.1 % (2-12); NEUTROPHILS # (AUTO) 4.8 X10'3 (1.8-7.7); NEUTROPHILS % (AUTO) 68.8 % (42-75); PLATELET COUNT 234 X10'3 (140-440); RED BLOOD COUNT 4.66 X10'6 (4.20-5.60); RED CELL DISTRIBUTION WIDTH 13.5 % (11.5-14.5)
[2021-09-15] MEDS: clozapine 25mg tablet PO SCH ×2 (07:57→12:27)
[2021-09-15] MEDS: oxybutynin 5mg tablet PO SCH ×2 (07:58→20:00)
--- NOTE | 2021-09-15 07:58 | NUR ---
Pt spit out her morning meds in applesauce. Call placed to Dr Reyes as pt is conserved and needs an IM back up for refusal of meds.
[2021-09-15] MEDS: polyethylene glycol 3350 17gm powd pack PO SCH (08:00)
[2021-09-15] MEDS: OLANZapine **IM** 10 mg inj. IM PRN ×2 (08:49→21:14)
--- NOTE | 2021-09-15 09:00 | NUR ---
Order obtained from Dr Reyes for Zyprexa 10 mg BID PRN refusal to take PO Clozaril. Gave Zyprexa 10 mg IM right ventrogluteal at 0849. Pt was cooperative with the injection.
--- NOTE | 2021-09-15 10:09 | NUR ---
Reassessment: Pt continues with poor PO intake, documented with 25-50% PO intake with meal refusals not meeting estimated nutrient needs. Noted per processing engineer pt has not been accepting of medications and likely not accepting of snacks. LBM 09/10, documented as constipated. Routine bowel care added to med list today however pt refused per EMR. Constipation and current mentation likely impacting PO intake. D/w dietary to send prunes and prune juice with next meal to assist with bowel regularity, though unlikely that pt will be accepting given current poor acceptance to food. Will continue to follow closely and make recommendations as appropriate. Recommendations: 1. Continue regular diet 2. Smoothies BIDLD 3. Encourage PO intake 4. Routine bowel care 5. Weekly scaled wts Addendum: 09/15/21 at [address] Amended: Links added.
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
--- NOTE | 2021-09-15 15:34 | NUR ---
PLACEMENT UPDATE Isabel has been accepted at [facility]. They are aware that she has been cheeking her meds and are willing to work with her on this. Transport has been arranged for 09/21/21. She likely will get picked up prior to 7 AM. She will need a week supply of medications to go with her. MARCELA Cannon
--- NOTE | 2021-09-15 16:12 | NUR ---
Pt began yelling and running through the siu way. It was reported by PCT that pt believed her bag of chips was a bomb. It was also reported that pt had told a peer with a set of radio headphones that she wished to listen to the news. Evidently the peer found a news station for her to listen to. The new may have been a trigger for her believing her chip bag was a bomb. Pt was reassured that she is safe here. Pt was given PRN Clozapine ODT 50 mg. Pt asked, "Is this for hallucinations?" Pt took the medication. Pt stated, "I need to read something." Pt is looking for something to read in the community room.
[2021-09-15 19:00] VITALS: BP 131/84
[2021-09-15] MEDS: clozapine 100mg tablet PO SCH (20:08)
[2021-09-15] MEDS ORDERED: clozapine 100mg tablet PO ONE (20:15)
[2021-09-15] MEDS ORDERED: clozapine 25mg tablet PO ONE (20:15)
[2021-09-15] MEDS: lamoTRIgine 100mg tablet PO SCH (21:00)
[2021-09-16] MEDS ORDERED: LORazepam 2 mg/ml vial IM ONE (00:25)
[2021-09-16] MEDS ORDERED: LORazepam 2 mg/ml vial ONE (00:31)
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
[2021-09-16] MEDS: levoTHYROXINE 25mcg tablet PO SCH (07:00)
[2021-09-16] MEDS: oxybutynin 5mg tablet PO SCH ×2 (08:00→19:10)
[2021-09-16] MEDS: clozapine 25mg tablet PO SCH ×2 (08:00→13:00)
[2021-09-16] MEDS: polyethylene glycol 3350 17gm powd pack PO SCH (08:51)
[2021-09-16] MEDS: OLANZapine **IM** 10 mg inj. IM PRN (11:18)
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
[2021-09-16 19:00] VITALS: BP 140/90
[2021-09-16] MEDS: lamoTRIgine 100mg tablet PO SCH (19:10)
[2021-09-16] MEDS: clozapine 100mg tablet PO SCH (19:11)
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
[2021-09-17] MEDS: clozapine 25mg tablet PO PRN ×4 (03:29→21:42)
--- NOTE | 2021-09-17 04:46 | NUR ---
Notified by SLIP COVER ESTIMATOR that pt shah sbright orange urine all over bathroom floor and bedroom. UA and BMP ordered. Hat placed on toilet for pt to urinate in for analysis. Addendum: 09/17/21 at 0517 by Kelsey Leahy RN CMP ordered. not BMP
[2021-09-17] MEDS ORDERED: OLANZapine **IM** 10 mg inj. IM ONE (06:35)
--- NOTE | 2021-09-17 06:42 | NUR ---
Pt barricaded door with chair and threw water all over floor, stating she was cleansing the floor with holy water. Two aides went to push open door. Security was called to be on standby. Pt started yelling. Called Cherrie HULL. DELLA ordered 10mg Zyprexa IM. Pt has calmed down and lying in bed.
[2021-09-17] MEDS: polyethylene glycol 3350 17gm powd pack PO SCH (08:00)
[2021-09-17] MEDS: levoTHYROXINE 25mcg tablet PO SCH (08:35)
[2021-09-17] MEDS: clozapine 25mg tablet PO SCH ×2 (08:37→19:56)
[2021-09-17] MEDS: oxybutynin 5mg tablet PO SCH ×2 (08:38→19:56)
[2021-09-17 09:19] LABS: ALANINE AMINOTRANSFERASE 30 U/L (12-78); ALBUMIN 3.3 G/DL (3.4-5.0); ALKALINE PHOSPHATASE 75 IU/L (46-116); ASPARTATE AMINO TRANSFERASE 31 U/L (10-37); BILIRUBIN,TOTAL 0.7 MG/DL (0.1-1.0); BLOOD UREA NITROGEN 11 MG/DL (7-18); BUN/CREATININE RATIO 11.8 (6.6-38.0); CALCIUM 9.7 MG/DL (8.5-10.1); CREATININE 0.93 MG/DL (0.40-0.90); GLUCOSE 97 MG/DL (70-104); TOTAL CARBON DIOXIDE 21.1 MMOL/L (24-32); TOTAL PROTEIN 6.6 G/DL (6.4-8.2); eGFR 62 ML/MIN
[2021-09-17 10:40] LABS: CLARITY,URINE SLIGHTLY CLOUDY (Clear); GLUCOSE, URINE NEGATIVE (Neg); KETONES,URINE 40 mg/dl (Neg); LEUKOCYTE ESTERASE ,URINE NEGATIVE (Neg); NITRITES, URINE NEGATIVE (Neg); OCCULT BLOOD,URINE NEGATIVE (Neg); PROTEIN,URINE 30 mg/dl (Neg)
[2021-09-17 10:51] LABS: COLOR,URINE DARK YELLOW (Yellow); UA COLLECTION TYPE STRAIGHT CATH
[2021-09-17 10:54] LABS: BACTERIA,URINE FEW /HPF (Neg); CAL OXALATE CRYSTALS 3+ /HPF (NEGATIVE); MUCUS STRANDS MODERATE /LPF (Neg); RBC,URINE NONE SEEN /HPF (0-2); RENAL CELLS, URINE FEW /HPF; SQUAMOUS EPITHELIAL CELL,UR MODERATE /LPF (FEW); WBC,URINE 0-4 /HPF (0-4)
[2021-09-17 14:34] LABS: POTASSIUM 3.3 MMOL/L (3.3-5.1)
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
[2021-09-17] MEDS: lamoTRIgine 100mg tablet PO SCH (19:56)
[2021-09-17] MEDS: clozapine 100mg tablet PO SCH (19:56)
[2021-09-17] MEDS: propranolol 10mg tablet PO SCH (19:56)
[2021-09-17 19:59] VITALS: BP 139/100
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
[2021-09-18 07:40] VITALS: BP 108/60
[2021-09-18] MEDS: levoTHYROXINE 25mcg tablet PO SCH (08:12)
[2021-09-18] MEDS: polyethylene glycol 3350 17gm powd pack PO SCH (08:13)
[2021-09-18] MEDS: propranolol 10mg tablet PO SCH ×2 (08:13→21:06)
[2021-09-18] MEDS: clozapine 100mg tablet PO SCH ×2 (08:13→21:05)
[2021-09-18] MEDS: oxybutynin 5mg tablet PO SCH ×2 (08:13→21:05)
--- NOTE | 2021-09-18 12:58 | NUR ---
Reassessment: Pt continues with poor PO intake, documented with 25% average PO intake with meal refusals not meeting estimated nutrient needs. Noted per silver recovery operator pt has also not been accepting of snacks. Pt has been agitated and confused per silver recovery operator. Given poor PO intake and wt loss of 14% in 2 months pt meets minimum criteria for malnutrition, MD notified. LBM 09/17, miralax given 09/18 per EMR. No nutrition intervention implemented at this time. Will continue to monitor. 1. Continue regular diet 2. Smoothies BIDLD 3. Encourage PO intake 4. Routine bowel care 5. Weekly scaled wts 6. Consider supplemental TF if MD agreeable and pt cooperative Addendum: 09/18/21 at [address] Amended: Links added. Addendum: 09/18/21 at [address] I have reviewed assessment by international tax manager
--- NOTE | 2021-09-18 13:42 | NUR ---
Pt. attended group today. Today's group was about the different communications styles i.e passive, aggressive and assertive. We discussed what the characteristics of each style was. We then discussed where they saw themselves at now and where they would like to be with their communication style. Pt. sat in the group today but shared minimally. At one point in the group she spoke up but it was very difficult to understand what she was attempting to say. She began to cry and then got upset with this Biomedical Engineering Supervisor when this write attempted to get her tissues. She finally settle down and sat quietly for the rest of the group doodling on papers in front of her. Her mood was sad with a labile affect. She and her peer sitting next to her talked together in [facility] and she seemed to be able to socialize appropriately with him. Henny Nunez LCSW
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
[2021-09-18 20:00] VITALS: BP 122/96
[2021-09-18] MEDS: clozapine 25mg tablet PO PRN ×2 (21:05→23:55)
[2021-09-18] MEDS: clozapine 25mg tablet PO SCH (21:05)
[2021-09-18] MEDS: lamoTRIgine 100mg tablet PO SCH (21:06)
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
[2021-09-19] MEDS: propranolol 10mg tablet PO SCH ×2 (07:51→19:54)
[2021-09-19] MEDS: polyethylene glycol 3350 17gm powd pack PO SCH (07:52)
[2021-09-19] MEDS: levoTHYROXINE 25mcg tablet PO SCH (07:52)
[2021-09-19] MEDS: oxybutynin 5mg tablet PO SCH ×2 (07:52→19:54)
[2021-09-19] MEDS: clozapine 100mg tablet PO SCH ×2 (07:52→19:55)
[2021-09-19 08:00] VITALS: BP 108/64
[2021-09-19] MEDS ORDERED: NICO-907 BC (14:48)
[2021-09-19] MEDS ORDERED: PROP10TA10 PO (14:48)
[2021-09-19] MEDS ORDERED: OXYB5TAB16 PO (14:48)
[2021-09-19] MEDS ORDERED: ALBU18HF2 INH (14:48)
[2021-09-19] MEDS ORDERED: LEVO25TA7 PO (14:48)
[2021-09-19] MEDS ORDERED: LAMO100T2 PO (14:48)
[2021-09-19] MEDS ORDERED: CLOZ100T13 PO ×2 (14:48)
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
[2021-09-19] MEDS: OLANZapine **IM** 10 mg inj. IM PRN (17:54)
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
[2021-09-19] MEDS: clozapine 25mg tablet PO SCH (19:16)
[2021-09-19 19:26] VITALS: BP 139/93
[2021-09-19] MEDS: lamoTRIgine 100mg tablet PO SCH (19:55)
[2021-09-19] MEDS: temazepam 15mg capsule PO PRN (21:00)
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
[2021-09-20 07:55] VITALS: BP 117/65
--- NOTE | 2021-09-20 08:14 | NUR ---
DISCHARGE TH09/21/21 Isabel will be picked up around 8 AM by [facility] Public Guardian drivers. Please send her belongings, snacks, water, and medications with her. She is being transported to [facility] in [place]. Public Guardian will provide lunch. Meds will get delivered by Eric Batres today. MARCELA Cannon
[2021-09-20] MEDS: propranolol 10mg tablet PO SCH ×2 (08:21→19:56)
[2021-09-20] MEDS: polyethylene glycol 3350 17gm powd pack PO SCH (08:21)
[2021-09-20] MEDS: clozapine 100mg tablet PO SCH ×2 (08:21→19:57)
[2021-09-20] MEDS: oxybutynin 5mg tablet PO SCH ×2 (08:21→19:58)
[2021-09-20] MEDS: levoTHYROXINE 25mcg tablet PO SCH (08:21)
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
[2021-09-20 18:59] LABS: BASOPHILS % (AUTO) 0.8 % (0-1); EOSINOPHILS # (AUTO) 0.2 X10'3 (0-0.9); EOSINOPHILS % (AUTO) 2.7 % (0-6); HEMATOCRIT 43.8 % (35.0-45.0); HEMOGLOBIN 14.7 g/dl (12.0-16.0); LYMPHOCYTES # (AUTO) 1.9 X10'3 (1.1-4.8); MEAN CORPUSCULAR HGB CONC 33.6 g/dL (33.0-36.5); MEAN CORPUSCULAR VOLUME 92.1 FL (78-98); MEAN PLATELET VOLUME 7.7 FL (7.4-10.4); MONOCYTES # (AUTO) 0.8 X10'3 (0-0.9); MONOCYTES % (AUTO) 12.7 % (2-12); NEUTROPHILS # (AUTO) 3.3 X10'3 (1.8-7.7); NEUTROPHILS % (AUTO) 53.8 % (42-75); PLATELET COUNT 269 X10'3 (140-440); RED BLOOD COUNT 4.76 X10'6 (4.20-5.60); RED CELL DISTRIBUTION WIDTH 13.7 % (11.5-14.5); WHITE BLOOD COUNT 6.2 X10'3 (4.5-11.0)
[2021-09-20 19:08] LABS: ALANINE AMINOTRANSFERASE 33 U/L (12-78); ALBUMIN 3.6 G/DL (3.4-5.0); ALKALINE PHOSPHATASE 87 IU/L (46-116); ANION GAP 13 (8-16); ASPARTATE AMINO TRANSFERASE 20 U/L (10-37); BILIRUBIN,TOTAL 0.5 MG/DL (0.1-1.0); BLOOD UREA NITROGEN 18 MG/DL (7-18); BUN/CREATININE RATIO 16.8 (6.6-38.0); CALCIUM 9.4 MG/DL (8.5-10.1); CHLORIDE 107 MMOL/L (99-107); CREATININE 1.07 MG/DL (0.40-0.90); GLUCOSE 99 MG/DL (70-104); SODIUM 144 MMOL/L (135-145); TOTAL CARBON DIOXIDE 24.4 MMOL/L (24-32); TOTAL PROTEIN 7.1 G/DL (6.4-8.2); eGFR 53 ML/MIN
[2021-09-20 19:29] VITALS: BP 145/77
[2021-09-20] MEDS: temazepam 15mg capsule PO PRN (19:56)
[2021-09-20] MEDS: clozapine 25mg tablet PO SCH (19:57)
[2021-09-20] MEDS: lamoTRIgine 100mg tablet PO SCH (19:58)
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
[2021-09-21 06:58] VITALS: BP 123/72
[2021-09-21] MEDS: oxybutynin 5mg tablet PO SCH (07:15)
[2021-09-21] MEDS: levoTHYROXINE 25mcg tablet PO SCH (07:15)
[2021-09-21] MEDS: clozapine 100mg tablet PO SCH (07:15)
[2021-09-21] MEDS: propranolol 10mg tablet PO SCH (07:15)
[2021-09-21] MEDS: polyethylene glycol 3350 17gm powd pack PO SCH (07:15)
[2021-09-21 08:00] VITALS: BP 123/72
--- NOTE | 2021-09-21 08:41 | NUR ---
DISCHARGE NOTE: Pt was transferred to [facility] at 0820. She was escorted off the unit via wheelchair by community mental health worker and PCT, all belongings, filled Rx's, and 2 sack lunches obtained from the kitchen sent with her as well as 3 incontinent briefs and plenty of writing/drawing supplies.
== END 2021-09-21 08:20 | DRG 750 ==
LOC: ER 18:25 → ED HOLD 07-20 09:00 → ADULT MH 07-20 14:24
PROVIDERS: ADMIT Psychiatry & Neurology Psychiatry; ATTEND Psychiatry & Neurology Psychiatry
DX: F20.9 Schizophrenia, unspecified (principal); E03.9 Hypothyroidism, unspecified; Z20.822 Contact with and (suspected) exposure to COVID-19; G47.00 Insomnia, unspecified; J44.9 Chronic obstructive pulmonary disease, unspecified; K80.20 Calculus of gallbladder without cholecystitis without obstruction; E87.6 Hypokalemia; R51.9 Headache, unspecified; E66.01 Morbid (severe) obesity due to excess calories; F31.9 Bipolar disorder, unspecified; K59.00 Constipation, unspecified; Z68.41 Body mass index [BMI] 40.0-44.9, adult; R32 Unspecified urinary incontinence; Z88.0 Allergy status to penicillin; Z88.2 Allergy status to sulfonamides; Z88.8 Allergy status to other drugs, medicaments and biological substances; Z79.899 Other long term (current) drug therapy; Z79.890 Hormone replacement therapy; Z83.3 Family history of diabetes mellitus; Z91.030 Bee allergy status; Z91.018 Allergy to other foods; Z87.891 Personal history of nicotine dependence
CPT/HCPCS: 36415; 71045; 80053; 80061; 80305; 80320; 81001; 81003; 81025; 82140; 83036; 84132; 84443; 85025; 87081; 87635; 99285; C9803; J2060; J3490; Q0163; Q0177